=== PATIENT | female | born 1940 | race Hispanic/Latino ===

== ENCOUNTER 2017-07-13 13:50 | Emergency (ER) | payer MEDICARE ==
[2017-07-13 14:20] VITALS: TEMP 97.6; BMI 24.3
[2017-07-13 14:54] LABS: BASO # 0.06 K/mm3 (0.0-2.0); EOS % 0.5 % (1.5-5.0); GRAN # 3.44 (1.4-6.5); GRAN % 54.4 % (50.0-68.0); HEMOGLOBIN 12.7 g/dL (12.0-16.0); LYMPH # 2.3 (1.2-3.4); LYMPH % 35.7 % (22.0-35.0); MEAN CELL VOLUME 89.8 fl (80.0-105.0); MEAN CORPUSCULAR HEMOGLOBIN 29.5 pg (25.0-35.0); MEAN CORPUSCULAR HGB CONC 32.8 g/dl (31.0-37.0); MEAN PLATELET VOLUME 11.5 fl (7.0-11.0); MONO # 0.5 (0.1-0.6); MONO % 8.4 % (1.0-6.0); RBC 4.31 10^6/uL (3.5-6.1); RED CELL DISTRIBUTION WIDTH 13.4 % (11.5-14.5); WHITE BLOOD COUNT 6.3 10^3/ul (4.5-11.0)
[2017-07-13 15:06] LABS: ALB/GLOB RATIO 1.2 (1.1-1.8); ALBUMIN 3.6 g/dL (3.0-4.8); ALT/SGPT 23 U/L (7-56); AST/SGOT 22 U/L (14-36); BLOOD UREA NITROGEN 13 mg/dL (7-21); CALCIUM 9.6 mg/dL (8.4-10.5); GFR AFRICAN-AMERICAN > 60; GFR NON-AFRICAN AMERICAN > 60
--- NOTE | 2017-07-13 15:08 | CT ---
PROCEDURE: CT HEAD WITHOUT CONTRAST. HISTORY: head injury COMPARISON: None available. TECHNIQUE: Axial computed tomography images were obtained through the head/brain without intravenous contrast. Radiation dose: Total exam DLP = 917 mGy-cm. This CT exam was performed using one or more of the following dose reduction techniques: Automated exposure control, adjustment of the mA and/or kV according to patient size, and/or use of iterative reconstruction technique. FINDINGS: HEMORRHAGE: No intracranial hemorrhage. BRAIN: No mass effect or edema. Chronic microvascular changes are seen in the periventricular white matter. There are no acute findings VENTRICLES: Unremarkable. No hydrocephalus. CALVARIUM: Unremarkable. PARANASAL SINUSES: Unremarkable as visualized. No significant inflammatory changes. MASTOID AIR CELLS: Unremarkable as visualized. No inflammatory changes. OTHER FINDINGS: None. IMPRESSION: No acute intracranial findings
[2017-07-13 15:15] LABS: INR 1.07 (0.93-1.08); PARTIAL THROMBOPLASTIN TIME 30.6 Seconds (25.1-36.5); PROTHROMBIN TIME 12.2 SECONDS (9.4-12.5)
[2017-07-13 15:17] LABS: B-TYPE NATRIURETIC PEPTIDE 967 pg/mL (0-450); TROPONIN I < 0.01 ng/mL
[2017-07-13] MEDS ORDERED: Potassium Chloride 20 mEq ER Tab PO STA (15:20)
--- NOTE | 2017-07-13 15:42 | CT ---
PROCEDURE: CT MAXILLOFACIAL BONES WITHOUT CONTRAST HISTORY: nasal pain s/p trauma COMPARISON: None TECHNIQUE: Contiguous axial CT images of the maxillofacial bones were obtained. Coronal and sagittal reformats were generated. Radiation dose: Total exam DLP = 684 mGy-cm. This CT exam was performed using one or more of the following dose reduction techniques: Automated exposure control, adjustment of the mA and/or kV according to patient size, and/or use of iterative reconstruction technique. FINDINGS: NASAL BONES: Unremarkable. ORBITS: Unremarkable. PARANASAL SINUSES/ MASTOIDS: Clear. MAXILLA: Unremarkable. MANDIBLE/ TEMPOROMANDIBULAR JOINTS: Unremarkable. SKULL BASE: Unremarkable. TEMPORAL BONES: Middle ears and mastoid grossly unremarkable. OTHER FINDINGS: None. IMPRESSION: No evidence of fracture
--- NOTE | 2017-07-13 17:13 | ED PDOC ---
Arrival/HPI - General Chief Complaint: Trauma Time Seen by Provider: 07/13/17 14:32 Historian: Patient - History of Present Illness Narrative History of Present Illness (Text): 07/13/17 17:08 76yo female with PMhx of hypertension, diabetes, Dementia who present with complaint of headache and nasal pain s/p trauma yesterday. Patient states she tripped over a package yesterday fell faceward. She started having headache and pain over her nose today. The who is by the bedside states her BP has been elevated since yesterday. also report intermittent mild leg edema/ swelling x weeks. She otherwise denies dizziness, focal weakness, nausea, chest pain, SOB, diaphoresis, cough, any other complaint. Past Medical History - Provider Review Nursing Documentation Reviewed: Yes - Tetanus Immunization Tetanus Immunization: Unknown - Reproductive Menopause: No - Cardiac Hx Cardiac Disorders: Yes Hx Hypertension: Yes Hx Pacemaker: No - Neurological Hx Paralysis: No - Endocrine/Metabolic Hx Diabetes Mellitus Type 2: Yes - Hematological/Oncological Hx Blood Transfusions: No Hx Blood Transfusion Reaction: No - Musculoskeletal/Rheumatological Hx Musculoskeletal Disorders: No - Psychiatric Hx Psychophysiologic Disorder: No Hx Anxiety: No Hx Bipolar Disorder: No Hx Depression: No Hx Emotional Abuse: No Hx Hallucinations: No Hx Panic Disorder: No Hx Post Traumatic Stress Disorder: No Hx Psychosis: No Hx Physical Abuse: No Hx Schizophrenia: No Hx Sexual Abuse: No Hx Substance Use: No - Surgical History Hx Cholecystectomy: Yes Hx Hysterectomy: Yes Other/Comment: carpal tunnel, left breast cyst removal - Anesthesia Hx Anesthesia: Yes Hx Anesthesia Reactions: No Hx Malignant Hyperthermia: No - Suicidal Assessment Feels Threatened In Home Enviroment: No Family/Social History - Physician Review Nursing Documentation Reviewed: Yes Family/Social History: Unknown Family HX Smoking Status: Former Smoker Hx Alcohol Use: No Hx Substance Use: No Allergies/Home Meds Allergies/Adverse Reactions: Allergies No Known Allergies Allergy (Verified 12/01/11 11:00) Home Medications: Home Meds Medication Instructions Recorded Confirmed Aspirin 81 mg PO DAILY 12/01/11 09/27/14 Atenolol 50 mg PO DAILY 12/01/11 09/27/14 Calcium Carbonate/Vitamin D3 1 cap PO BID 12/01/11 09/27/14 [Calcium 600/Vitamin D] Lisinopril 5 mg PO DAILY 12/01/11 09/27/14 Metformin HCl [Metformin] 1,000 mg PO BID 12/01/11 09/27/14 Multivitamin [Multi Vitamins] 1 tab PO DAILY 12/01/11 09/27/14 [place] Oil/[place]-3 Fatty Acids 1,000 mg PO DAILY 12/01/11 09/27/14 [Fish Oil 500 mg Softgel] Simvastatin 20 mg PO BID 12/01/11 09/27/14 Buspirone HCl [Buspirone HCl] 5 mg PO TID 09/27/14 09/27/14 Glipizide 5 mg PO DAILY 09/27/14 09/27/14 Review of Systems - Physician Review All systems were reviewed & negative as marked: Yes - Review of Systems Constitutional: Normal Eyes: Normal ENT: Other (Nasal pain) Respiratory: Normal Cardiovascular: Normal Gastrointestinal: Normal Genitourinary Female: Normal Musculoskeletal: Normal Skin: Normal Neurological: Headache. absent: Dizziness, Focal Weakness, Gait Changes, Speech Changes, Facial Droop Endocrine: Normal Hemo/Lymphatic: Normal Psychiatric: Normal Physical Exam Vital Signs Reviewed: Yes Vital Signs Temp Pulse Resp BP Pulse Ox 07/13/17 18:29 67 16 168/80 H 96 07/13/17 17:48 75 18 176/76 H 98 07/13/17 16:00 78 18 163/84 H 98 07/13/17 14:04 97.6 F 76 18 192/84 H 98 Temperature: Afebrile Blood Pressure: Hypertensive Pulse: Regular Respiratory Rate: Normal Appearance: Positive for: Well-Appearing, Non-Toxic, Comfortable Pain Distress: None Mental Status: Positive for: Alert and Oriented X 3 - Systems Exam Head: Present: Atraumatic, Normocephalic Pupils: Present: PERRL Extroacular Muscles: Present: EOMI Conjunctiva: Present: Normal Mouth: Present: Moist Mucous Membranes Nose (External): Present: Contusion (Nasal bridge). No: Atraumatic (Effymosis and mild swelling of nasal bridge noted) Neck: Present: Normal Range of Motion Respiratory/Chest: Present: Clear to Auscultation, Good Air Exchange. No: Respiratory Distress, Accessory Muscle Use Cardiovascular: Present: Regular Rate and Rhythm, Normal S1, S2. No: Murmurs Abdomen: Present: Normal Bowel Sounds. No: Tenderness, Distention, Peritoneal Signs Back: Present: Normal Inspection Upper Extremity: Present: Normal Inspection, Edema (1+ pitting edema of b/l foot ). No: Cyanosis Lower Extremity: Present: Normal Inspection. No: Edema Neurological: Present: GCS=15, CN II-XII Intact, Speech Normal, Motor Func Grossly Intact, Normal Sensory Function, Normal Cerebellar Funct, Memory Normal , Normal 2Pt Descrimination, Other (No focal neurological deficit) Skin: Present: Warm, Dry, Normal Color. No: Rashes Psychiatric: Present: Alert, Oriented x 3, Normal Insight, Normal Concentration Medical Decision Making ED Course and Treatment: 07/13/17 18:54 Pt in ED for stated history. She had no focal neurological deficit in ED. She was AAO x3 and in no distress. Her BP improved in ED. Hypokalemia was noted and potassium was repleted. BNP of 958was noted. Both pt and the denies history of CHF. Case was DW Dr. felton who is covering Doctor Jazz and he requested that pt be DC home to f/u with Dr. Blanco this week. Pt came to ED for her facial pain/headache. She complained of LE edema, which is intermittent. she was hemodynamically stable in ED and stable to be DC home. Result and plan was DW the pt and the and they expressed understanding of the instructions. the states they will try and see Dr. blanco tomorrow. - Lab Interpretations Lab Results: 07/13/17 14:45 07/13/17 14:45 Lab Results 07/13/17 14:45: PT 12.2, INR 1.07, APTT 30.6 07/13/17 14:45: Sodium 139, Potassium 3.1 L, Chloride 98, Carbon Dioxide 36 H, Anion Gap 9 L, BUN 13, Creatinine 0.7, Est GFR ( Amer) > 60, Est GFR (Non -Af Amer) > 60, Random Glucose 141 H, Calcium 9.6, Magnesium 1.8, Total Bilirubin 0.6, AST 22, ALT 23, Alkaline Phosphatase 56, Lactate Dehydrogenase 405, Total Creatine Kinase 26 L, Troponin I < 0.01, NT-Pro-B Natriuret Pep 967 H , Total Protein 6.7, Albumin 3.6, Globulin 3.0, Albumin/Globulin Ratio 1.2 07/13/17 14:45: WBC 6.3, RBC 4.31, Hgb 12.7, Hct 38.7, MCV 89.8, MCH 29.5, MCHC 32.8, RDW 13.4, Plt Count 167, MPV 11.5 H, Gran % 54.4, Lymph % (Auto) 35.7 H, [place] % (Auto) 8.4 H, Eos % (Auto) 0.5 L, Baso % (Auto) 1.0, Gran # 3.44, Lymph # (Auto) 2.3, [place] # (Auto) 0.5, Eos # (Auto) 0.0, Baso # (Auto) 0.06 - RAD Interpretation Radiology Orders: 07/13/17 14:33 MAXILLOFACIAL W/O CONTRAST [CT] Stat 07/13/17 14:34 HEAD W/O CONTRAST [CT] Stat - Medication Orders Current Medication Orders: Discontinued Medications Furosemide (Lasix) 20 mg IVP STAT STA Stop: 07/13/17 17:37 Potassium Chloride (Potassium Chloride 20 Meq/100 Ml) 20 meq in 100 mls @ 50 mls/hr IVPB ONCE ONE Stop: 07/13/17 17:20 Last Admin: 07/13/17 16:12 Dose: 50 mls/hr eMAR Start Stop Document 07/13/17 16:12 HI (Rec: 07/13/17 16:12 HI [id number]) Intravenous Solution Start Date 07/13/17 Start Time 16:12 Potassium Chloride (K-Dur 20 Meq Er Tab) 40 meq PO STAT STA Stop: 07/13/17 15:21 Last Admin: 07/13/17 16:12 Dose: 40 meq Disposition/Present on Arrival - Present on Arrival Any Indicators Present on Arrival: No History of DVT/PE: No History of Uncontrolled Diabetes: No Urinary Catheter: No History of Decub. Ulcer: No History Surgical Site Infection Following: None - Disposition Have Diagnosis and Disposition been Completed?: Yes Diagnosis: Facial contusion, Headache, Fall, Edema, Hypokalemia Disposition: HOME/ ROUTINE Disposition Time: 17:40 Patient Plan: Discharge Patient Problems: Current Active Problems Problem Status Onset Edema Acute Facial contusion Acute Fall Acute Headache Acute Condition: STABLE Discharge Instructions (ExitCare): Headache, Adult, Contusion (DC), Preventing Falls Additional Instructions: Follow up with your Doctor this week Return to ED for any new or worsening symptoms Referrals: Hitesh Blanco MD [Primary Care Provider] - Follow up with primary Forms: [employer] (Green[place]ic)
[2017-07-13 18:30] VITALS: BP 168/80; PULSE 67; RESP 16; O2SAT 96
--- NOTE | 2017-07-14 07:25 | CARD ---
APPROVED REPORT EKG Measurement Heart [id number] <Conclusion> Sinus rhythm with 1st degree AV block with premature supraventricular complexes LAD NSSTW changes
== END 2017-07-13 18:34 | disposition home or self-care (01) ==
LOC: ED 13:50
DX: S00.83XA Contusion of other part of head, initial encounter (principal); W01.0XXA Fall on same level from slipping, tripping and stumbling without subsequent striking against object, initial encounter; Y92.9 Unspecified place or not applicable; R51 Headache; E87.6 Hypokalemia; R60.9 Edema, unspecified; I10 Essential (primary) hypertension; E11.9 Type 2 diabetes mellitus without complications; Z87.891 Personal history of nicotine dependence
CPT/HCPCS: 70450; 70486; 80053; 82550; 83615; 83735; 83880; 84484; 85025; 85610; 85730; 93005; 99285; J3480

== ENCOUNTER 2017-08-02 14:24 | Inpatient (IN) | payer MEDICARE ==
[2017-08-02 15:01] VITALS: BMI 22.3
--- NOTE | 2017-08-02 15:45 | RAD ---
HISTORY: Shortness of breath COMPARISON: 09/27/2014. FINDINGS: LUNGS: The lungs are well inflated and clear. PLEURA: No significant pleural effusion identified, no pneumothorax apparent. CARDIOVASCULAR: Normal. OSSEOUS STRUCTURES: There are lobular calcifications in the periarticular soft tissues of the shoulder joints which may represent calcific tendinitis in the appropriate clinical setting. VISUALIZED UPPER ABDOMEN: Normal. OTHER FINDINGS: None. IMPRESSION: No active pulmonary disease.
--- NOTE | 2017-08-02 16:03 | ED PDOC ---
Arrival/HPI - General Historian: Patient, Family - History of Present Illness Time/Duration: < month Symptom Course: Intermittent Activities at Onset: Rest <Duncan Woody - Last Filed: 08/02/17 17:40> - History of Present Illness Symptom Onset: Gradual Context: Home <Thom Bobby - Last Filed: 08/02/17 18:14> - General Chief Complaint: Weakness/Neurological Deficit Time Seen by Provider: 08/02/17 14:52 - History of Present Illness Narrative History of Present Illness (Text): 08/02/17 15:58 patient is a 76F with a PMH of DM, HTN comes to the ED with a CC of left eye ptosis and left arm weakness. Patient and daughter explain that the ptosis started initially 3 weeks ago but resolved. and then again 1 week ago and again resolved. The most recent episode happen over the past 24hrs. The daughter also noticed L. arm weakness that has since resolved. The patient denies any syncope, dysphagia, headache, blurry vision, double vision, changes in speech. Patients family called the PMD and they told him to come to the ED. Patient denies any recent travel or sick contacts. No fever, chest pain, sob, nausea, vomiting. (Duncan Woody) Past Medical History - Tetanus Immunization Tetanus Immunization: Unknown - Cardiac Hx Cardiac Disorders: Yes Hx Hypertension: Yes Hx Pacemaker: No - Pulmonary Hx Respiratory Disorders: No - Neurological Hx Neurological Disorder: Yes Hx Paralysis: No Other/Comment: carpal tunnel - HEENT Hx HEENT Disorder: No - Renal Hx Renal Disorder: No - Endocrine/Metabolic Hx Endocrine Disorders: Yes Hx Diabetes Mellitus Type 2: Yes - Hematological/Oncological Hx Blood Disorders: No Hx Blood Transfusions: No Hx Blood Transfusion Reaction: No - Integumentary Hx Dermatological Disorder: No - Musculoskeletal/Rheumatological Hx Musculoskeletal Disorders: Yes Hx Falls: Yes - Gastrointestinal Hx Gastrointestinal Disorders: No - Genitourinary/Gynecological Hx Genitourinary Disorders: No - Psychiatric Hx Psychophysiologic Disorder: No Hx Anxiety: No Hx Bipolar Disorder: No Hx Depression: No Hx Emotional Abuse: No Hx Hallucinations: No Hx Panic Disorder: No Hx Post Traumatic Stress Disorder: No Hx Psychosis: No Hx Physical Abuse: No Hx Schizophrenia: No Hx Sexual Abuse: No Hx Substance Use: No - Surgical History Hx Cholecystectomy: Yes Hx Hysterectomy: Yes Other/Comment: carpal tunnel, left breast cyst removal - Anesthesia Hx Anesthesia: Yes Hx Anesthesia Reactions: No Hx Malignant Hyperthermia: No - Suicidal Assessment Feels Threatened In Home Enviroment: No <Duncan Woody - Last Filed: 08/02/17 17:40> - Provider Review Nursing Documentation Reviewed: Yes - Travel History Have you recently traveled outside [place] w/in the past 3 mons?: No - Past History Past History: No Previous - Infectious Disease Hx of Infectious Diseases: None - Reproductive Menopause: Yes Currently : No <Thom Bobby - Last Filed: 08/02/17 18:14> Family/Social History - Physician Review Nursing Documentation Reviewed: Yes Family/Social History: Unknown Family HX Smoking Status: Former Smoker Hx Alcohol Use: No Hx Substance Use: No <Duncan Woody - Last Filed: 08/02/17 17:40> Hx Substance Use Treatment: No <Thom Bobby - Last Filed: 08/02/17 18:14> Allergies/Home Meds <Duncan Woody - Last Filed: 08/02/17 17:40> <Thom Bobby - Last Filed: 08/02/17 18:14> Allergies/Adverse Reactions: Allergies No Known Allergies Allergy (Verified 08/02/17 14:55) Home Medications: Home Meds Medication Instructions Recorded Confirmed Donepezil HCl [Aricept] 23 mg PO DAILY 08/02/17 08/02/17 Lisinopril [Zestril] 10 mg PO DAILY 08/02/17 08/02/17 Sertraline [Zoloft] 50 mg PO DAILY 08/02/17 08/02/17 Review of Systems - Review of Systems Constitutional: Normal Eyes: Normal ENT: Normal Respiratory: Normal Cardiovascular: Normal Gastrointestinal: Normal Genitourinary Female: Normal Musculoskeletal: Normal Skin: Normal Neurological: Normal Endocrine: Normal Hemo/Lymphatic: Normal Psychiatric: Normal <Duncan Woody - Last Filed: 08/02/17 17:40> - Review of Systems Genitourinary Female: Other (urinary incontience; urinary frequency) <KanuThom Last Filed: 08/02/17 18:14> Physical Exam Temperature: Afebrile Blood Pressure: Normal Pulse: Regular Respiratory Rate: Normal Appearance: Positive for: Well-Appearing, Non-Toxic, Comfortable Pain Distress: None Mental Status: Positive for: Alert and Oriented X 3 - Systems Exam Head: Present: Atraumatic, Normocephalic Pupils: Present: PERRL Extroacular Muscles: Present: EOMI Conjunctiva: Present: Normal Mouth: Present: Moist Mucous Membranes Neck: Present: Normal Range of Motion Respiratory/Chest: Present: Clear to Auscultation, Good Air Exchange. No: Respiratory Distress, Accessory Muscle Use Cardiovascular: Present: Regular Rate and Rhythm, Normal S1, S2. No: Murmurs Abdomen: No: Tenderness, Distention, Peritoneal Signs Back: Present: Normal Inspection Upper Extremity: Present: Normal Inspection. No: Cyanosis, Edema Lower Extremity: Present: Normal Inspection. No: Edema Neurological: Present: GCS=15, CN II-XII Intact, Speech Normal Skin: Present: Warm, Dry, Normal Color. No: Rashes Psychiatric: Present: Alert, Oriented x 3, Normal Insight, Normal Concentration <RajwinderlarsDuncan Last Filed: 08/02/17 17:40> Blood Pressure: Hypertensive (elevated DBP) <Thom Bobby Filed: 08/02/17 18:14> Vital Signs Temp Pulse Resp BP Pulse Ox 08/02/17 15:27 71 18 164/85 H 100 08/02/17 14:55 97.6 F 84 18 146/101 H 99 Medical Decision Making <RupertoscottDuncan sousa Filed: 08/02/17 17:40> Re-evaluation Time: 17:25 Reassessment Condition: Improved - Critical Care Critical Care Minutes: 30 minutes Critical Care Time: Excluding Proc Time - Lab Interpretations I have reviewed the lab results: Yes Interpretation: Abnormal lab values (+ UTI) - RAD Interpretation Project Hire: Radiologist - EKG Interpretation Interpreted by ED Physician: Yes Type: 12 lead EKG Comparison: Similar to previous EKG <Thom Bobby Last Filed: 08/02/17 18:14> ED Course and Treatment: 08/02/17 16:03 76F with intermittent Ptosisof the left eye and L. arm weakness - head ct - cxr, ekg - cbc, cmp, mag, UA 08/02/17 17:19 - pending head CT official read - cxr no effusion or inflitrate, no widening of the mediastinum. No evidence of congestion - EKG showed no ST changes, no arrythmogenic changes - labs unremarkable 08/02/17 17:41 UA shows UTI. 1g rochepin (Duncan Woody) Patient seen with the resident. I performed a physical exam of the patient and discussed their management with resident. I have reviewed the resident note and agree with the assessment and plan of care. Vital signs reviewed: elevated BP, otherwise Within normal limits alert/awake, GCS = 15, oriented x 3, resting in bed, uncomfortable, cooperative , interactive NC/AT; mild bi-temporal wasting PERRLA, EOMI, sclera anicteric, no nystagmus, no photophobia; visual field intact b/l; noted mild left upper eye lid droop NECK: intact ROM, no midline tenderness, no nuchal rigidity, no meningeal signs ; no step off CTA b/l, no w/r/r +S1, +S2, no m/r/r +BS, soft/nd/nt, well nourished patient ext: intact ROM, strength 5/5 grossly intact in right upper/lower limbs, 5-/5 strength to left upper/lower limbs, neurovasc intact b/l SKIN: cap refill ~ 1 sec, no ulcerations, no petechiae, no rashes NEURO: CNII-XII WNL, no facial asymmetries, no slurr speech NIH stroke scale ~ 1-2 Impression: Left periorbital weakness with left arm,leg weakness r/o CVA I have considered all the differential diagnosis regarding the patient's chief medical complaints/clinical findings, including but are not limited to: Left periorbital weakness with left arm,leg weakness A/P: Left periorbital weakness with left arm, leg weakness -- Head CT w/o contrast -- Urinalysis -- Labs -- Supportive Care -- Observe 08/02/17 17:[address] Loredo, who is made aware of pt's medical presentation in the ED and agrees with emergency department recommendation for admission, and request Dr. Wood for Neurology consult. 08/02/17 18:03 pt is doing well currently pt is not in any distress pt expressed she is hungry and would like a meal pt/spouse are made aware of pt's medical results agrees with admission NIH stroke scale ~ 1 (Thom Bobby) - Critical Care Narrative Critical Care (Text): 08/02/17 18:10 critical care time: 30min, excluding procedure time, excluding time teaching residents/students/mid-level providers; including initial eval/diagnosis, diagnostic interpretation, re-eval, consultations, final disposition (Thom Bobby) - Lab Interpretations Lab Results: 08/02/17 16:10 08/02/17 16:10 Lab Results 08/02/17 16:51: Urine Color Yellow, Urine Appearance Cloudy, Urine pH 6.5, Ur Specific [place] 1.020, Urine Protein Trace H, Urine Glucose (UA) Negative, Urine Ketones Negative, Urine Blood Trace-intact H, Urine Nitrate Positive H, Urine Bilirubin Negative, Urine Urobilinogen 0.2, Ur Leukocyte Esterase Large H , Urine RBC 0 - 2, Urine WBC Tntc, Ur Epithelial Cells 0 - 2, Urine Bacteria Many 08/02/17 16:10: Sodium 139, Potassium 4.2, Chloride 103, Carbon Dioxide 29, Anion Gap 11, BUN 15, Creatinine 0.8, Est GFR ( Amer) > 60, Est GFR (Non- Af Amer) > 60, Random Glucose 103, Calcium 9.5, Magnesium 2.1, Total Bilirubin 0.5, AST 21, ALT 26, Alkaline Phosphatase 69, Total Protein 6.7, Albumin 3.7, Globulin 3.0, Albumin/Globulin Ratio 1.2 08/02/17 16:10: PT 12.5, INR 1.09 H, APTT 28.5 08/02/17 16:10: WBC 5.6, RBC 4.22, Hgb 12.4, Hct 37.3, MCV 88.4, MCH 29.4, MCHC 33.2, RDW 13.7, Plt Count 182, MPV 11.1 H, Gran % 49.6 L, Lymph % (Auto) 40.0 H , [place] % (Auto) 8.6 H, Eos % (Auto) 0.7 L, Baso % (Auto) 1.1, Gran # 2.77, Lymph # (Auto) 2.2, [place] # (Auto) 0.5, Eos # (Auto) 0.0, Baso # (Auto) 0.06 - RAD Interpretation Narrative RAD Interpretations (Text): 08/02/17 17:55 HISTORY: Shortness of breath COMPARISON: 09/27/2014. FINDINGS: LUNGS: The lungs are well inflated and clear. PLEURA: No significant pleural effusion identified, no pneumothorax apparent. CARDIOVASCULAR: Normal. OSSEOUS STRUCTURES: There are lobular calcifications in the periarticular soft tissues of the shoulder joints which may represent calcific tendinitis in the appropriate clinical setting. VISUALIZED UPPER ABDOMEN: Normal. OTHER FINDINGS: None. IMPRESSION: No active pulmonary disease. PROCEDURE: CT HEAD WITHOUT CONTRAST. HISTORY: Left eye ptosis, L. arm weakness COMPARISON: 07/13/2017 CT head 09/03/2016 MRI brain TECHNIQUE: Axial computed tomography images were obtained through the head/brain without intravenous contrast. Radiation dose: Total exam DLP = 772.06 mGy-cm. This CT exam was performed using one or more of the following dose reduction techniques: Automated exposure control, adjustment of the mA and/or kV according to patient size, and/or use of iterative reconstruction technique. FINDINGS: HEMORRHAGE: No intracranial hemorrhage. BRAIN: Stable extra-axial mass left frontal parietal region. Finding initially seen on MRI 09/03/2016 and confirmed on recent CT head. This extra-axial mass measures 0.6 x 1.9 cm and likely represents meningioma. Stable cortical atrophy and periventricular small vessel disease. VENTRICLES: Unremarkable. No hydrocephalus. CALVARIUM: Unremarkable. PARANASAL SINUSES: Unremarkable as visualized. No significant inflammatory changes. MASTOID AIR CELLS: Unremarkable as visualized. No inflammatory changes. OTHER FINDINGS: None. IMPRESSION: No acute intracranial abnormality. No significant interval change compared to the prior examination(s). (Thom Bobby) Radiology Orders: 08/02/17 15:15 HEAD W/O CONTRAST [CT] Stat CHEST PORTABLE [RAD] Stat - EKG Interpretation EKG Interpretation (Text): 08/02/17 18:07 sinus rhythm at 65 bpm, LAD, + PACs, borderline 1st degree av block, qs in leads III/F, no st changes, ABNL EKG; unchanged compare with old ekg 07/2017 ( Thom Bobby) - Medication Orders Current Medication Orders: Discontinued Medications Aspirin (Aspirin) 325 mg PO STAT STA Stop: 08/02/17 17:22 Ceftriaxone Sodium (Rocephin 1 Gram Ivpb) 1 gm in 100 mls @ 200 mls/hr IVPB STAT STA PRN Reason: Protocol Stop: 08/02/17 17:49 <Duncan Woody - Last Filed: 08/02/17 17:40> - Scribe Statement The provider has reviewed the documentation as recorded by the Scribe <Thom Bobby - Last Filed: 08/02/17 18:14> - Scribe Statement Trini Mcconnell Provider Scribe Attestation: All medical record entries made by the Scribe were at my direction and personally dictated by me. I have reviewed the chart and agree that the record accurately reflects my personal performance of the history, physical exam, medical decision making, and the department course for this patient. I have also personally directed, reviewed, and agree with the discharge instructions and disposition. (KanuThom) Disposition/Present on Arrival - Present on Arrival Any Indicators Present on Arrival: No History of DVT/PE: No History of Uncontrolled Diabetes: No Urinary Catheter: No History of Decub. Ulcer: No History Surgical Site Infection Following: None <Duncan Woody - Last Filed: 08/02/17 17:40> - Disposition Have Diagnosis and Disposition been Completed?: Yes Disposition Time: 18:00 Patient Plan: Admission, Telemetry <Thom Bobby - Last Filed: 08/02/17 18:14> - Disposition Diagnosis: Ptosis, left eyelid, Limb weakness, Elevated blood pressure reading, UTI ( urinary tract infection) Disposition: HOSPITALIZED Condition: STABLE Discharge Instructions (ExitCare): Hypotension (ED), Hypertension (ED) Forms: [facility] (Moroccan)
[2017-08-02 16:17] LABS: BASO # 0.06 K/mm3 (0.0-2.0); BASO % 1.1 % (0.0-3.0); EOS % 0.7 % (1.5-5.0); GRAN # 2.77 (1.4-6.5); GRAN % 49.6 % (50.0-68.0); HEMOGLOBIN 12.4 g/dL (12.0-16.0); LYMPH # 2.2 (1.2-3.4); MEAN CELL VOLUME 88.4 fl (80.0-105.0); MEAN CORPUSCULAR HEMOGLOBIN 29.4 pg (25.0-35.0); MEAN CORPUSCULAR HGB CONC 33.2 g/dl (31.0-37.0); MEAN PLATELET VOLUME 11.1 fl (7.0-11.0); MONO # 0.5 (0.1-0.6); MONO % 8.6 % (1.0-6.0); RBC 4.22 10^6/uL (3.5-6.1); RED CELL DISTRIBUTION WIDTH 13.7 % (11.5-14.5); WHITE BLOOD COUNT 5.6 10^3/ul (4.5-11.0)
[2017-08-02 16:27] LABS: INR 1.09 (0.93-1.08); PARTIAL THROMBOPLASTIN TIME 28.5 Seconds (25.1-36.5); PROTHROMBIN TIME 12.5 SECONDS (9.4-12.5)
[2017-08-02 16:43] LABS: ALB/GLOB RATIO 1.2 (1.1-1.8); ALBUMIN 3.7 g/dL (3.0-4.8); ALT/SGPT 26 U/L (7-56); AST/SGOT 21 U/L (14-36); BLOOD UREA NITROGEN 15 mg/dL (7-21); CALCIUM 9.5 mg/dL (8.4-10.5); GFR AFRICAN-AMERICAN > 60; GFR NON-AFRICAN AMERICAN > 60
[2017-08-02 16:56] LABS: PH,URINE 6.5 (4.7-8.0); URINE BILIRUBIN NEGATIVE (NEGATIVE); URINE BLOOD TRACE-INTACT (NEGATIVE); URINE GLUCOSE (UA) NEGATIVE (NEGATIVE); URINE LEUKOCYTE ESTERASE LARGE Leu/uL (NEGATIVE); URINE PROTEIN TRACE mg/dL (<30 mg/dL); URINE UROBILINOGEN 0.2 E.U./dL (<1 E.U./dL)
[2017-08-02 16:58] LABS: URINE APPEARANCE CLOUDY (CLEAR); URINE COLOR YELLOW (YELLOW)
[2017-08-02 17:01] LABS: URINE BACTERIA MANY (NEG); URINE EPITHELIAL CELLS 0 - 2 /hpf (0-5); URINE RBC 0 - 2 /hpf (0-2); URINE WBC TNTC /hpf (0-6)
[2017-08-02] MEDS ORDERED: cefTRIAXone 1 gm 1 GM/100 ML BAG IVPB STA (17:20)
--- NOTE | 2017-08-02 17:40 | CT ---
PROCEDURE: CT HEAD WITHOUT CONTRAST. HISTORY: Left eye ptosis, L. arm weakness COMPARISON: 07/13/2017 CT head 09/03/2016 MRI brain TECHNIQUE: Axial computed tomography images were obtained through the head/brain without intravenous contrast. Radiation dose: Total exam DLP = 772.06 mGy-cm. This CT exam was performed using one or more of the following dose reduction techniques: Automated exposure control, adjustment of the mA and/or kV according to patient size, and/or use of iterative reconstruction technique. FINDINGS: HEMORRHAGE: No intracranial hemorrhage. BRAIN: Stable extra-axial mass left frontal parietal region. Finding initially seen on MRI 09/03/2016 and confirmed on recent CT head. This extra-axial mass measures 0.6 x 1.9 cm and likely represents meningioma. Stable cortical atrophy and periventricular small vessel disease. VENTRICLES: Unremarkable. No hydrocephalus. CALVARIUM: Unremarkable. PARANASAL SINUSES: Unremarkable as visualized. No significant inflammatory changes. MASTOID AIR CELLS: Unremarkable as visualized. No inflammatory changes. OTHER FINDINGS: None. IMPRESSION: No acute intracranial abnormality. No significant interval change compared to the prior examination(s).
--- NOTE | 2017-08-02 19:19 | CARD ---
APPROVED REPORT EKG Measurement Heart [id number] <Conclusion> Sinus rhythm with premature atrial complexes Anterior infarct, age undetermined Abnormal ECG
[2017-08-03] MEDS: cefTRIAXone 1 gm 1 GM/100 ML BAG IVPB SCH (10:52)
[2017-08-03] MEDS: DONEPEZIL HCL 23 MG PO SCH (10:54)
[2017-08-03 13:09] LABS: HDL CHOLESTEROL 54 mg/dL (29-60)
[2017-08-03 13:20] LABS: LDL CHOLESTEROL 177 mg/dL (0-129)
[2017-08-03] MEDS ORDERED: Gadodiamide 287 MG/ML VIAL (15ML) IV ONE (16:06)
--- NOTE | 2017-08-03 17:25 | MRI ---
PROCEDURE: MRI BRAIN WITHOUT CONTRAST HISTORY: left eye ptosis and left arm weakness. COMPARISON: 09/03/2016 MRI TECHNIQUE: Multiplanar, multisequence MR images of the brain were obtained without intravenous contrast enhancement. The study was limited. The patient refused any further scanning. There was some motion artifact FINDINGS: HEMORRHAGE: None DWI: No evidence of an acute or early subacute infarction. BRAIN PARENCHYMA: No mass effect or edema. Chronic microvascular changes are seen in the periventricular white matter, basal ganglia and [place]. VENTRICLES: Unremarkable. No hydrocephalus. CRANIUM: Unremarkable. ORBITS: Grossly unremarkable. PARANASAL SINUSES/MASTOIDS: Clear VASCULAR SYSTEM: Skull base flow voids intact. OTHER FINDINGS: None. IMPRESSION: Chronic microvascular changes are seen in the periventricular white matter, basal ganglia and valentine.
--- NOTE | 2017-08-03 17:38 | US ---
PROCEDURE: Bilateral carotid artery duplex ultrasound HISTORY: Carotid stenosis TIA PHYSICIAN(S): Aldo Tijerina MD. TECHNIQUE: Duplex sonography and color-flow Doppler were used to evaluate the carotid bifurcations and limited segments of the vertebral arteries bilaterally. FINDINGS: There is mild smooth heterogeneous plaque noted at the carotid bifurcations bilaterally. The peak systolic velocity in the proximal right internal carotid artery is 103 cm/sec. This corresponds to a 20 to 39% proximal right ICA stenosis. Normal systolic velocities are noted in the proximal right external carotid artery. There is antegrade flow in the dominant right vertebral artery. The peak systolic velocity in the proximal left internal carotid artery is 89 cm/sec. This corresponds to a 20 to 39% proximal left ICA stenosis. Normal systolic velocities are noted in the proximal left external carotid artery. There is antegrade flow in the left vertebral artery. IMPRESSION: 1. Bilateral 20-39% proximal ICA stenoses. 2. Antegrade flow in both vertebral arteries.
--- NOTE | 2017-08-03 19:47 | CON ---
DATE: 08/03/2017 NEUROLOGY CONSULTATION CHIEF COMPLAINT: Transient left arm weakness and some questionable ptosis on the left eye. HISTORY OF PRESENT ILLNESS: This is a 76-year-old woman with history of type 2 diabetes mellitus, hypertension, was not taking aspirin at home. Complained of left eyelid weakness which she also had 3 weeks prior to her visit and presented with it as well along with some transient left arm weakness, which all symptoms resolved. She had elevated systolic and diastolic blood pressures in the ER of 146/101. She underwent a carotid Doppler, which showed 20-39% proximal ICA stenosis with antegrade flow of vertebral artery. MRI of the brain showed chronic ischemic changes and a small very tiny lacunar infarct in the right MCA territory, which does correspond with her transient left-sided weakness. She also has urinary tract infection, which she is on antibiotics, which was seen on her UA. No focal weakness at this time. REVIEW OF SYSTEMS: Fourteen-point review of systems negative except per the HPI. PAST MEDICAL HISTORY: Diabetes, hypertension and dyslipidemia. ALLERGIES: NO KNOWN DRUG ALLERGIES. MEDICATIONS: Reviewed by nurse reconciliation sheet. FAMILY HISTORY: Noncontributory. LABORATORY DATA: Total cholesterol is 271, LDL is 177, HDL is 54, triglycerides 101. Normal CMP otherwise. PHYSICAL EXAMINATION: VITAL SIGNS: Temperature 97, pulse rate of 70, blood pressure 117/79, respiratory rate of 16, oxygen saturation 99% by room air. GENERAL: The patient is sitting up in bed, in no acute distress. HEENT: Atraumatic, normocephalic. PERRLA. Extraocular muscles intact. NECK: Supple. No JVD. No adenopathy noted. LUNGS: Clear to auscultation. No adventitious sounds. HEART: S1, S2. Normal rate and rhythm. No murmurs, rubs or gallops. ABDOMEN: Soft, nontender and nondistended. Bowel sounds are present. EXTREMITIES: No clubbing. No cyanosis. Peripheral pulses 2+ felt bilaterally. NEUROLOGIC: The patient is alert and oriented to person, place, month and year. Speech is fluent without any errors. Cranial nerves II through XII intact. Motor exam: Moves all extremities equally. No pronator drift seen, but does have reduced finger tap and mild leg weakness of 5-/5 when compared to the right. Left toes upgoing, right toes downgoing. Sensory exam: Light touch, pinprick are decreased up to the calves bilaterally. Decreased vibration of the toes. DTRs are 2+ throughout, 1 at the knees and ankles. Coordination: [id number] intact. No dysmetria noted. Gait is deferred for now. ASSESSMENT AND PLAN: This is a 76-year-old woman with history of hypertension, type 2 diabetes mellitus, dyslipidemia, was not on any aspirin, history of some cognitive impairment, on Aricept by her neurologist, , who presented with transient left arm weakness and left eye ptosis, but no double vision or blurry vision. No headaches. Her symptoms have resolved, but she does have some subtle left-sided weakness based on neurologic exam. Her carotid Doppler showed 20-39% proximal internal carotid artery stenosis with antegrade flow of vertebral artery. She did have a small tiny acute infarct in the right middle cerebral artery territory, which corresponds to initial presenting complaints and she had elevated systolic and diastolic blood pressures when she presented to the ER. Overall, her left arm weakness transiently was secondary to the transient ischemic attack superimposed underlying right small tiny lacunar infarction in the right middle cerebral artery territory secondary to diffuse atherosclerotic disease and uncontrolled blood pressures. At this time, recommend, 1. Aspirin 81, Lipitor 40 for stroke prevention. 2. Heart-healthy diet and low fat diet. 3. PT/OT evaluation. 4. Echocardiogram and follow up with her neurologist as an outpatient. Thank you for this consult. Cesar Wood MD
--- NOTE | 2017-08-04 02:27 | HP ---
HISTORY OF PRESENT ILLNESS: This is a 76-year-old female, who had come into the hospital. She was found to have a left eye ptosis. The patient was brought in by her daughter. The patient's daughter also states that she has been having weight loss. She denies any weakness in the arms or the legs. She has no headaches or dizziness. No fevers, no chills. The patient has no abdominal pain, no back pain. No dysuria, frequency or hematuria. She states that the ptosis started about 3 weeks ago and then has now came back again. The patient denies any seizure activity. She denies any fall. She denies any headaches. REVIEW OF SYSTEMS: All other review of symptoms are within normal limits except what was mentioned. ALLERGIES: NO KNOWN DRUG ALLERGIES. HOME MEDICATIONS: She is on Aricept, Zestril, Zoloft. SOCIAL HISTORY: She is a former smoker, does not smoke or drink. FAMILY HISTORY: Noncontributory. PAST MEDICAL HISTORY: Carpal tunnel syndrome, diabetes type 2, hypertension. PHYSICAL EXAMINATION: VITAL SIGNS: Temperature is 97, pulse is 70, blood pressure 170/79, respirations 16, O2 saturation 99%. GENERAL: The patient lying in bed, uncomfortable, and in no acute distress. HEENT: Atraumatic and normocephalic. Anicteric sclerae. Moist mucosa. [place] conjunctivae. No oral lesions. Left eye ptosis. NECK: No JVD, anterior and posterior adenopathy, thyromegaly, or bruits. CARDIOVASCULAR: S1 and S2 regular. No murmur, rubs, or gallop. LUNGS: Clear to auscultation bilaterally. No wheezes, rales, or rhonchi. ABDOMEN: Bowel sounds are positive. Soft, nontender and nondistended. No hepatosplenomegaly. No rebound and no guarding EXTREMITIES: No cyanosis, clubbing, or edema. NEUROLOGIC: No facial asymmetry. Tongue is midline. No uvula deviation. Power is 5/5 upper extremity and lower extremity. Sensation intact in upper extremity and lower extremity. PSYCHIATRIC: She is awake, alert and oriented x3. No anxiety or depression. She has normal affect. GENITOURINARY: No CVA tenderness. VASCULAR: 2+ pulses in the carotid pulses and pedal pulses. SKIN: No erythema or nodules SPINE: Shows normal curvature. LABORATORY DATA: Have been reviewed. White count of 5.6. Chemistry showed the creatinine is 0.8. The patient has an LDL of 177. Nitrites is positive, bilirubin is negative. Chest x-ray done, shows no active pulmonary disease. EKG shows sinus rhythm with PACs with a QTc of 462. ASSESSMENT: 1. Left eye ptosis. 2. Dyslipidemia. 3. Urinary tract infection. 4. Hypertension, uncontrolled. 5. Anxiety. PLAN: The patient is going to have carotid arterial Dopplers done. She is on a heart-healthy diet. I did speak to the patient's daughter. She is also losing weight. So I will get Dr. Martinez to evaluate the patient. on this specialist. I also spoke to the patient's to give him an update on the patient's diagnoses and plan of care. Dario Jordan MD
--- NOTE | 2017-08-04 06:23 | CON ---
DATE: 08/03/2017 This patient was seen and evaluated earlier today. REASON FOR CONSULTATION: Weight loss. HISTORY OF PRESENT ILLNESS: This 76-year-old patient with history of type 2 diabetes mellitus, hypertension, admitted with left eye weakness and let arm weakness. Patient gives a history of losing about 35 to 40 pounds in weight in the last 3 to 4 months. GI consult was requested to further evaluate. Patient states that she has been not eating. She has a very poor p.o. intake for the last 3 months. No complaints of any abdominal pain. No bleeding per rectum. OTHER PAST MEDICAL HISTORY: Significant as above. SOCIAL HISTORY: Denies smoking, alcohol. REVIEW OF SYSTEMS: Positive as above. Other systems reviewed, negative. PHYSICAL EXAMINATION: GENERAL: Patient is lying on the bed, not in acute distress. VITAL SIGNS: Blood pressure is 164/85, pulse 71, respirations 18. HEENT: Atraumatic, anicteric. NECK: Supple. HEART: S1, S2 heard. LUNGS: Bilateral air entry present. ABDOMEN: Soft. There is no tenderness. EXTREMITIES: No edema. No cyanosis. LABORATORY DATA: Hemoglobin 12.4, hematocrit 37.3, WBC 5.6, platelets 182. Chemistry: LFT is normal. IMPRESSION: This is a 76-year-old patient admitted with: 1. Transient left arm weakness and ptosis. 2. History of weight loss. 3. Anorexia, loss of appetite. Patient lost about 40 pounds in weight in 3 to 4 months' time. Patient has loss of appetite and significant weight loss. 4. Other comorbidities include diabetes mellitus, hypertension, dyslipidemia. The etiology for weight loss is unclear. RECOMMENDATIONS: Would request, 1. CT scan of the abdomen and pelvis with p.o. and IV contrast to further evaluate. 2. Patient may benefit from an endoscopy for further optimization in view of the recent history of possible TIA/stroke. Thank you very much for allowing me to participate in the care of the patient. Kvng Martinez MD
[2017-08-04 07:00] LABS: HEMOGLOBIN 13.2 g/dL (12.0-16.0); MEAN CELL VOLUME 88.3 fl (80.0-105.0); MEAN CORPUSCULAR HEMOGLOBIN 28.7 pg (25.0-35.0); MEAN CORPUSCULAR HGB CONC 32.5 g/dl (31.0-37.0); MEAN PLATELET VOLUME 11.9 fl (7.0-11.0); RBC 4.6 10^6/uL (3.5-6.1); RED CELL DISTRIBUTION WIDTH 13.8 % (11.5-14.5); WHITE BLOOD COUNT 6.4 10^3/ul (4.5-11.0)
[2017-08-04 07:02] LABS: ALB/GLOB RATIO 1.2 (1.1-1.8); ALBUMIN 3.8 g/dL (3.0-4.8); ALT/SGPT 25 U/L (7-56); AST/SGOT 22 U/L (14-36); BLOOD UREA NITROGEN 10 mg/dL (7-21); CALCIUM 9.7 mg/dL (8.4-10.5); GFR AFRICAN-AMERICAN > 60; GFR NON-AFRICAN AMERICAN > 60
[2017-08-04] MEDS: DONEPEZIL HCL 23 MG PO SCH (09:33)
[2017-08-04] MEDS: cefTRIAXone 1 gm 1 GM/100 ML BAG IVPB SCH (09:34)
[2017-08-04] MEDS ORDERED: Barium Sulfate Susp 2.1% w/v, 2.0% w/w 450 mL Bottle PO ONE (11:01)
--- NOTE | 2017-08-04 11:50 | CP.PCM.PN ---
<Lesvia Cody - Last Filed: 08/04/17 11:47> Subjective - Date & Time of Evaluation Date of Evaluation: 08/04/17 Time of Evaluation: 10:20 - Subjective Subjective: Seen and examined at the bedside earlier today, chart review. Patient denies nausea, vomiting, or abdominal pain. Report having bowel movement yesterday no reports of overnight events. Denies dysphagia, tolerated a bite of bagel although reported that it was hard. Objective - Vital Signs/Intake and Output Vital Signs (last 24 hours): Temp Pulse Resp BP Pulse Ox 97.8 F 70 19 154/76 H 94 L 08/04/17 07:56 08/04/17 07:56 08/04/17 07:56 08/04/17 09:34 08/04/17 07:56 Intake and Output: 08/04/17 08/04/17 06:59 18:59 Intake Total 420 Balance 420 - Medications Medications: Current Medications Amlodipine Besylate (Norvasc) 10 mg PO DAILY [facility] Last Admin: 08/04/17 09:34 Dose: 10 mg Aspirin (Ecotrin) 81 mg PO DAILY [facility] Last Admin: 08/04/17 09:34 Dose: 81 mg Atorvastatin Calcium (Lipitor) 20 mg PO DIN [facility] Last Admin: 08/03/17 17:18 Dose: 20 mg Cefpodoxime Proxetil (Vantin) 200 mg PO Q12 [facility] Lisinopril (Zestril) 40 mg PO DAILY [facility] Last Admin: 08/04/17 09:35 Dose: 40 mg Donepezil Hcl [ Aricept] 23 Mg (Home Med) 23 mg PO DAILY [facility] Last Admin: 08/04/17 09:33 Dose: Not Given Sertraline HCl (Zoloft) 50 mg PO DAILY [facility] Last Admin: 08/04/17 09:35 Dose: 50 mg - Labs Labs: 08/04/17 06:00 08/04/17 06:00 PT 12.5 SECONDS (9.4-12.5) 08/02/17 16:10 INR 1.09 (0.93-1.08) H 08/02/17 16:10 APTT 28.5 Seconds (25.1-36.5) 08/02/17 16:10 - Constitutional Appears: No Acute Distress - Head Exam Head Exam: NORMOCEPHALIC - Eye Exam Eye Exam: Normal appearance. absent: Scleral icterus - ENT Exam ENT Exam: Mucous Membranes Moist - Neck Exam Neck Exam: Normal Inspection - Respiratory Exam Respiratory Exam: NORMAL BREATHING PATTERN. absent: Respiratory Distress - Cardiovascular Exam Cardiovascular Exam: +S1, +S2 - GI/Abdominal Exam GI & Abdominal Exam: Soft, Normal Bowel Sounds. absent: Guarding, Tenderness, Organomegaly, Rebound - Extremities Exam Extremities Exam: Normal Capillary Refill. absent: Calf Tenderness, Pedal Edema - Neurological Exam Neurological Exam: Alert, Awake, Oriented x3 Neuro motor strength exam: Left Upper Extremity: 3 (noted some mild weakness), Right Upper Extremity: 4, Left Lower Extremity: 4, Right Lower Extremity: 4 - Skin Skin Exam: Dry, Warm Assessment and Plan - Assessment and Plan (Free Text) Assessment: Assessment: Transient left arm weakness, proptosis Weight loss of about 30-40 pounds Anorexia Hypertension Diabetes mellitus Plan: Request for CT scan of chest/abdomen and pelvis with IV and oral contrast change diet to soft hard healthy moderate carb diet, discussed with patient to eat slowly and chew food well May benefit from endoscopy for further evaluation of weight loss when patient is more optimize secondary to recent TIA/stroke As per neurology Seen and examined with Dr. Martinez. <Kvng Martinez V - Last Filed: 08/05/17 00:11> Objective - Vital Signs/Intake and Output Vital Signs (last 24 hours): Temp Pulse Resp BP Pulse Ox 97.4 F L 78 18 131/70 98 08/04/17 16:00 08/04/17 22:00 08/04/17 16:00 08/04/17 16:00 08/04/17 16:00 Intake and Output: 08/04/17 08/05/17 18:59 06:59 Intake Total 300 Output Total 100 Balance 200 - Medications Medications: Current Medications Amlodipine Besylate (Norvasc) 10 mg PO DAILY [facility] Last Admin: 08/04/17 09:34 Dose: 10 mg Aspirin (Ecotrin) 81 mg PO DAILY [facility] Last Admin: 08/04/17 09:34 Dose: 81 mg Atorvastatin Calcium (Lipitor) 20 mg PO DIN [facility] Last Admin: 08/04/17 16:59 Dose: 20 mg Cefpodoxime Proxetil (Vantin) 200 mg PO Q12 [facility] Lisinopril (Zestril) 40 mg PO DAILY [facility] Last Admin: 08/04/17 09:35 Dose: 40 mg Donepezil Hcl [ Aricept] 23 Mg (Home Med) 23 mg PO DAILY [facility] Last Admin: 08/04/17 09:33 Dose: Not Given Sertraline HCl (Zoloft) 50 mg PO DAILY [facility] Last Admin: 08/04/17 09:35 Dose: 50 mg - Labs Labs: 08/04/17 06:00 08/04/17 06:00 PT 12.5 SECONDS (9.4-12.5) 08/02/17 16:10 INR 1.09 (0.93-1.08) H 08/02/17 16:10 APTT 28.5 Seconds (25.1-36.5) 08/02/17 16:10 Attending/Attestation - Attestation I have personally seen and examined this patient.: Yes I have fully participated in the care of the patient.: Yes I have reviewed all pertinent clinical information, including history, physical exam and plan: Yes Notes (Text): This is an addendum to GI progress report dictated by Lesvia Cody APN.The patient was seen and examined earlier. Medical records, lab studies, imagings were reviewed. Last 24 hours events reviewed. Agreed with the above treatment plan as outlined in Lesvia Cody APN's notes the with the addition of the following patient comfortably Still complains of loss Abdomen soft no tendern CT scan reviewed, no mass lesion was no acute finding In view of recent TIA would avoid endoscopy procedures recommend continue the asp Continue PPI Elective EGD in 2 weeks' time after neurology clearance 08/05/17 00:07
--- NOTE | 2017-08-04 13:14 | PQF CVATIA ---
Dr. Wood, This form is a permanent part of the medical record Please clarify your statement documented in your consult..."she did have a small tiny acute infarct in right MCA territory which corresponds to presenting complaints....left arm weakness secondary to transient ischemic attack superimposed underlying right small tiny lacunar infarction......". Did patient have TIA or CVA on admission causing symptoms? Clarification of your documentation is requested to better reflect the severity of illness and intensity of treatment of your patient. Indicators present: [] Altered mental status [] Aphasia [] Dysphagia [] Dysphasia [x] Facial droop/numbness [] Gait disturbance [] Hemiparesis/plegia [] Speech impairment [x] Weakness left arm [] Neuro Consult [] CT/MRI Findings [] Other: [] Location in the medical record that reflects the above clinical findings: [] Treatment Provided: [] PHYSICIAN'S RESPONSE Based on your medical judgment of the clinical indicators outlined above, are you treating this patient for a known or suspected: [] Acute Cerebrovascular Accident (CVA) Please specify type i.e.; embolic, hemorrhagic, ischemic. Please specify the artery involved if known. [] Transient Ischemic Accident (TIA) [] Prolonged reversible ischemic neurological disorder [] Other, please indicate: [] [] If unable to determine, please check the box, sign and date. Present On Admission (POA) Indicator: [] Present at the time of admission [] Not present at the time of admission [] Clinically Undetermined In responding to this query, please exercise your independent professional judgment. The fact that a question is asked does not imply that any particular answer is desired or expected. Thank you for your clarification on this documentation. 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
[2017-08-04] MEDS ORDERED: Iohexol 350 MG/100 ML VIAL ONE (13:32)
--- NOTE | 2017-08-04 15:43 | CT ---
PROCEDURE: CT Chest, Abdomen and Pelvis with intravenous contrast HISTORY: wt. loss COMPARISON: None. TECHNIQUE: Following oral and intravenous contrast administration, a CT examination of the abdomen and pelvis performed from the domes of the diaphragms to the symphysis pubis with reformatted datasets provided not only axial but also sagittal and coronal series. IV dose administered: Omnipaque 350, 100 cc Radiation dose: Total exam DLP = 514.63 mGy-cm. This CT exam was performed using one or more of the following dose reduction techniques: Automated exposure control, adjustment of the mA and/or kV according to patient size, and/or use of iterative reconstruction technique. FINDINGS: CT CHEST WITH CONTRAST: LUNGS: No infiltrate bilaterally. Trace occasional atelectasis seen at the dependent lower lobes bilaterally. With no definite acute infiltrate No nodule, mass or consolidation. MEDIASTINUM: A small hiatal hernia is identified inferiorly with the thoracic inlet grossly remarkable only for inhomogeneous enhancement at the left thyroid lobe with a small right thyroid lobe identified. Normal caliber aorta and pulmonary arterial trunk. Moderately extensive coronary artery atherosclerotic plaques identified. No aortic dissection. Normal size heart. LYMPH NODES: Unremarkable. PLEURA: Unremarkable. No pneumothorax. No pleural fluid. BONES: Unremarkable. OTHER FINDINGS: None. CT ABDOMEN AND PELVIS: LIVER: Trace pneumobilia is seen in nondependent central intrahepatic ducts in this patient with prior cholecystectomy. No gross lesion or prominent ductal dilatation. GALLBLADDER AND BILE DUCTS: Prior cholecystectomy evident. PANCREAS: Unremarkable. No gross lesion or ductal dilatation. SPLEEN: Unremarkable. ADRENALS: Unremarkable. No mass. KIDNEYS AND URETERS: 4.6 cm simple cyst seen exophytic at the upper pole left kidney with 2 small midpole cyst identified as well. No cyst or solid mass is seen at the right kidney and there is no solid mass at the left kidney either. Small cortical defects are seen bilaterally suggestive of probable chronic infarcts. VASCULATURE: Unremarkable. No aortic aneurysm. BOWEL: The stomach is distended with moderate amount of retained food. There is no bowel obstruction or mesenteric edema. Moderate fecal loading seen throughout the colon with scattered colonic diverticular appreciate which are nonacute. APPENDIX: Normal but retrocecal appendix is identified. PERITONEUM: Unremarkable. No free fluid. No free air. LYMPH NODES: Unremarkable. No enlarged lymph nodes. BLADDER: Trace gas seen in nondependent urinary bladder with the inferior portion of bladder obscured by left total hip replacement hardware. Consider recent instrumentation. Clinically correlate further. REPRODUCTIVE: Prior hysterectomy suggested. BONES: A [id number] anterior wedge compression fractures identified T12 indeterminate in age. No spondylolisthesis. OTHER FINDINGS: None. IMPRESSION: No definite pattern to suggest thoracic or abdominal/pelvic focal neoplasm. No significant lymphadenopathy throughout the examination. Limited bilateral basilar dependent atelectasis without acute infiltrate evident. No pneumothorax or pleural effusion identified. Prior cholecystectomy evident. Trace pneumobilia likely related in the nondependent left lobe liver. Multiple simple left renal cysts identified. Trace gas seen in nondependent urinary bladder of indeterminate etiology. Consider recent instrumentation. Clinically correlate further. Next item prior cholecystectomy. Nonacute colonic diverticulosis scattered throughout. Other lesser findings as discussed above.
--- NOTE | 2017-08-05 01:52 | DS ---
HISTORY OF PRESENT ILLNESS: This is a 76-year-old female who has come in to the hospital because of left eye ptosis. The patient denied any weakness in the arms and the legs. She initially had a CAT scan done that was negative. She was seen by a Neurology, Dr. Wood. According to his history, the patient did have some subtle left-sided weakness. She had brain MRI done that shows chronic microvascular changes seen in the periventricular white matter, was not a good study because patient had refused further scanning. There was motion artifact that was seen. There is no evidence of acute or early subacute infarction. Patient had Carotid Doppler done that shows bilateral 20% to 39% proximal ICA stenosis. Patient was seen by Dr. Martinez because of weight loss. A CT of the abdomen and pelvis was ordered. Patient has lost about 40 pounds in the last 3 to 4 months. She has no complaints of any headaches or dizziness. No nausea. No vomiting. PHYSICAL EXAMINATION: VITAL SIGNS: Temperature is 98, pulse is 68, blood pressure is 171/76. GENERAL: The patient is lying in bed, flat, comfortable. HEENT: No oral lesion. Anicteric sclerae. Moist mucosa. Left eye ptosis. NECK: No JVD, adenopathy, or thyromegaly. CARDIOVASCULAR: S1 and S2, regular. No murmurs, rubs, or gallops. LUNGS: Clear to auscultation bilaterally. No wheeze, rales, or rhonchi. ABDOMEN: Bowel sounds are positive, soft, nontender and nondistended. EXTREMITIES: No cyanosis, clubbing or edema. LABORATORY DATA: White count 5.6, hemoglobin 12.4. Chemistry shows LDL of 177. ASSESSMENT: 1. Left eye ptosis. 2. Transient ischemic attack. 3. Cerebrovascular accident secondary to right middle cerebral artery, lacunar infarct. 4. Hypertension, uncontrolled. 5. Weight loss. 6. Dyslipidemia. 7. Anxiety. PLAN: The patient is currently admitted to the hospital. She is receiving aspirin for her TIA. She is also on Lipitor for dyslipidemia. The patient's blood pressure is elevated. I did increase her lisinopril to 40 mg, continues to be high. I will add Norvasc to her regimen as well. She was seen by Neurology and GI, appreciate their input. Physical therapy has evaluated the patient and had recommended to TCU. I do not believe the TCU takes stroke patients or she may not qualify. I will check with the director of casework services. She is going to continue her heart-healthy diet. Dario Jordan MD
--- NOTE | 2017-08-05 08:11 | CON ---
DATE: 08/04/2017 GENITOURINARY CONSULTATION CHIEF COMPLAINT: Weakness and left eye droop. HISTORY OF PRESENT ILLNESS: This is a 76-year-old female who is admitted to [facility] after she was noted to have left-sided weakness and a left eye ptosis. The patient reports the symptoms present for a few days. I have seen the patient recently as an outpatient regarding recurrent urinary tract infections, urinary frequency and urgency. She has been undergoing a outpatient evaluation. She had a recent renal ultrasound showing renal cysts, but no mass. She is recently treated for a urinary tract infection. Urologically, patient reports she continues with urinary frequency and urgency and has urge incontinence as well. She denies any current dysuria. She denies any fever, chills or flank pain. PAST MEDICAL HISTORY: Significant for type 2 diabetes, hypertension, Alzheimer's. HOME MEDICATIONS: Include Aricept, Zestril and Zoloft. ALLERGIES NO KNOWN DRUG ALLERGIES. FAMILY HISTORY: Noncontributory. SOCIAL HISTORY: No current smoking, but a history of smoking in the past. No EtOH use. REVIEW OF SYSTEMS: 12-point review of systems was obtained. Patient is giving history, but not a perfect historian. On review of systems, she does complain of urinary frequency, urgency and urge incontinence. She does complain of some left-sided weakness. She does complain of some generalized lethargy and dizziness. Does complain of some lower extremity weakness, difficulty ambulating. Does complain of some depression and memory loss. Other systems are negative. PHYSICAL EXAMINATION: GENERAL: Patient is awake and alert, answering questions, in no acute distress. NECK: Supple. There is no adenopathy. VITAL SIGNS: She is afebrile. Temperature of 97.8, BP 154/76, respirations 19. CHEST: Reveals a normal inspiratory effort. CARDIAC: Shows positive S1, S2. There is mild peripheral edema noted. ABDOMEN: The abdomen is soft, nontender, nondistended. There is no hepatosplenomegaly or costovertebral angle tenderness. EXTREMITIES: There is no cyanosis. There is mild edema. LABORATORY EXAMINATION: Urinalysis showed positive nitrates, large wbc, 0 to 2 rbc's, creatinine 0.8 with a GFR greater than 60. WBC count 6.4. Urine culture is pending. IMPRESSION AND PLAN: This is a 76-year-old female with recurrent urinary tract infections. Urologically, patient has been started on antibiotics and we will await the results of her culture. More concerning at this point is the patient's neurologic issues, which appeared to be from an acute cerebrovascular accident. Patient is being seen by Neurology. As far as the recurrent urinary tract infections, patient should follow up in my office after discharge and we can continue to work on this. Her incontinence also is likely secondary to neurologic issues and we will discuss further treatment after her neurologic workup is complete. No acute urologic intervention is needed at this time other than treatment of the urinary infection and patient should continue follow up in my office after discharged from this acute event. Thank you for allowing me to participate in the care of this patient. We will follow her with you. Ez Rojas MD
[2017-08-05 08:24] VITALS: BP 147/76; RESP 20; TEMP 97.7; O2SAT 97
[2017-08-05] MEDS: DONEPEZIL HCL 23 MG PO SCH (09:45)
[2017-08-05] MEDS ORDERED: Cefpodoxime (Vantin) 200 mg Tab PO SCH (10:00)
[2017-08-05 14:08] VITALS: PULSE 91
--- NOTE | 2017-08-05 17:11 | CP.PCM.PN ---
Subjective - Date & Time of Evaluation Date of Evaluation: 08/05/17 Time of Evaluation: 10:00 - Subjective Subjective: Seen and examined at the bedside earlier today, chart reviewed. Patient had CT scan of abdomen chest and pelvis yesterday report to have bilateral bedside basilar dependent atelectasis without acute infiltration, trace pneumobilia related to nondependent left lobe lesion, multiple renal cysts. And trace gas non-dependence urinary bladder consider recent instruments, next item prior to cholecystectomy and diverticulosis. No acute overnight events as per nursing. Patient has episodes of confusion to time. No nausea, vomiting, or abdominal pain. Patient does report poor appetite. No complaints of dysphagia. Objective - Vital Signs/Intake and Output Vital Signs (last 24 hours): Temp Pulse Resp BP Pulse Ox 97.7 F 91 H 20 147/76 97 08/05/17 08:24 08/05/17 14:00 08/05/17 08:24 08/05/17 09:44 08/05/17 08:24 Intake and Output: 08/05/17 08/05/17 06:59 18:59 Intake Total 300 120 Output Total 100 Balance 200 120 - Labs Labs: 08/04/17 06:00 08/04/17 06:00 PT 12.5 SECONDS (9.4-12.5) 08/02/17 16:10 INR 1.09 (0.93-1.08) H 08/02/17 16:10 APTT 28.5 Seconds (25.1-36.5) 08/02/17 16:10 - Constitutional Appears: No Acute Distress - Head Exam Head Exam: NORMOCEPHALIC - Eye Exam Eye Exam: Normal appearance. absent: Scleral icterus - ENT Exam ENT Exam: Mucous Membranes Moist - Neck Exam Neck Exam: Normal Inspection - Respiratory Exam Respiratory Exam: NORMAL BREATHING PATTERN. absent: Respiratory Distress - Cardiovascular Exam Cardiovascular Exam: +S1, +S2 - GI/Abdominal Exam GI & Abdominal Exam: Soft, Normal Bowel Sounds. absent: Guarding, Tenderness, Rebound - Extremities Exam Extremities Exam: absent: Calf Tenderness, Pedal Edema - Neurological Exam Neurological Exam: Alert, Awake, Oriented x3 - Skin Skin Exam: Dry, Warm Assessment and Plan - Assessment and Plan (Free Text) Assessment: Assessment: Transient left arm weakness, ptosis Weight loss of about 30-40 pounds Anorexia Hypertension Diabetes mellitus Plan: change diet to soft hard healthy moderate carb diet, discussed with patient to eat slowly and chew food well May benefit from endoscopy for further evaluation of weight loss when patient is more optimize secondary to recent TIA/stroke on Aspirin As per neurology Plan to be transferred to TCU Seen and examined with Dr. Martinez.
--- NOTE | 2017-08-06 00:02 | DS ---
Please see the discharge summary that was done yesterday. HISTORY OF PRESENT ILLNESS: Patient has no complaints of any chest pain. No shortness of breath. No headaches or dizziness. PHYSICAL EXAMINATION: VITAL SIGNS: Temperature is 97.7, pulse of 78, blood pressure 147/76, respirations 20 and O2 saturation 97%. GENERAL: The patient is lying in bed, flat, comfortable. HEENT: No oral lesion. Anicteric sclerae. Moist mucosa. NECK: No JVD, adenopathy, or thyromegaly. CARDIOVASCULAR: S1 and S2, regular. No murmurs, rubs, or gallops. LUNGS: Clear to auscultation bilaterally. No wheeze, rales, or rhonchi. ABDOMEN: Bowel sounds are positive, soft, nontender and nondistended. EXTREMITIES: no cyanosis, clubbing or edema. CT of the chest, abdomen and pelvis was done. There is no definitive pattern to suggest thoracic or abdominal focal neoplasm. The CAT scan was reviewed. ASSESSMENT: 1. Left eye ptosis. 2. Weight loss. 3. Transient ischemic attack. 4. Cerebrovascular accident secondary to right middle cerebral artery lacunar infarct. 5. Hypertension. 6. Dyslipidemia. 7. Anxiety. PLAN: The patient is currently comfortable. She is going to continue with her aspirin. She is on a heart-healthy diet. She was being followed by Dr. Martinez. The patient is going to the TCU. She has lisinopril that was increased yesterday for her blood pressure. Her blood pressure is better controlled. CONDITION: Stable. ACTIVITY: Increase as tolerated. FOLLOWUP: 1. With Dr. Schulz in 1 to 2 weeks. 2. With GI for possible colonoscopy. Dario Jordan MD
== END 2017-08-05 14:16 | DRG 65 ==
LOC: ED 14:24 → ERH 17:45 → 2RNO 21:26 → 3RNO 08-03 17:02
PROVIDERS: ADMIT Internal Medicine Nephrology; ATTEND Internal Medicine Nephrology
DX: I63.511 Cerebral infarction due to unspecified occlusion or stenosis of right middle cerebral artery (principal); N39.0 Urinary tract infection, site not specified; H02.402 Unspecified ptosis of left eyelid; R53.1 Weakness; I10 Essential (primary) hypertension; E11.9 Type 2 diabetes mellitus without complications; I65.23 Occlusion and stenosis of bilateral carotid arteries; E78.5 Hyperlipidemia, unspecified; G30.9 Alzheimer's disease, unspecified; F02.80 Dementia in other diseases classified elsewhere, unspecified severity, without behavioral disturbance, psychotic disturbance, mood disturbance, and anxiety; N39.41 Urge incontinence; R63.0 Anorexia; R63.4 Abnormal weight loss; F41.9 Anxiety disorder, unspecified; Z87.440 Personal history of urinary (tract) infections; Z87.891 Personal history of nicotine dependence

== ENCOUNTER 2017-08-05 14:18 | Inpatient (IN) | payer OTHER, MEDICARE ==
[2017-08-05 17:34] VITALS: BMI 23.5
[2017-08-05] MEDS: Cefpodoxime (Vantin) 200 mg Tab PO SCH (21:21)
[2017-08-06] MEDS ORDERED: DONEPEZIL 23 MG PO SCH ×2 (10:00→12:24)
[2017-08-06] MEDS: Cefpodoxime (Vantin) 200 mg Tab PO SCH ×2 (10:34→22:07)
--- NOTE | 2017-08-06 12:08 | PN ---
DATE: SUBJECTIVE: The patient's initial H and P was reviewed by me and I agree with, this is the H and P that was done on 08/03/2017. The patient had come into the hospital because of left eye ptosis. She had an evaluation done and it was felt that she may have had a right MCA stroke, although it was not seen on a CAT scan or MRI. The patient has no complaints of any headaches or dizziness. No nausea. No vomiting. PHYSICAL EXAMINATION VITAL SIGNS: Temperature is 97.7, pulse of 73, blood pressure is 90/49, respirations 18. GENERAL: The patient is lying in bed, flat, comfortable. HEENT: No oral lesion. Anicteric sclerae. Moist mucosa. NECK: No JVD, adenopathy, or thyromegaly. CARDIOVASCULAR: S1 and S2, regular. No murmurs, rubs, or gallops. LUNGS: Clear to auscultation bilaterally. No wheeze, rales, or rhonchi. ABDOMEN: Bowel sounds are positive. Soft, nontender and nondistended. EXTREMITIES: No cyanosis, clubbing or edema. ASSESSMENT AND PLAN: 1. Left eye ptosis. 2. Weight loss. 3. Transient ischemic attack. 4. 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 5. Hypertension. 6. Dyslipidemia. 7. Anxiety. PLAN: Neurology has felt that the patient may have had a small infarct. The patient is on the Transitional Care Unit for rehab because of her gait dysfunction. Her blood pressure medications were increased. I will discontinue the patient's Norvasc as her blood pressure is low, but she is still symptomatic. The patient is on Zoloft; this will be continued for depression. She is on Lipitor for dyslipidemia. She is going to continue with aspirin. She had a full evaluation for her weight loss and had a CT of the chest, abdomen and pelvis as well as an evaluation by GI. No specific abnormalities were found. Dario Jordan MD
[2017-08-06 16:48] LABS: URINE BILIRUBIN NEGATIVE (NEGATIVE); URINE BLOOD NEGATIVE (NEGATIVE); URINE GLUCOSE (UA) NEGATIVE (NEGATIVE); URINE LEUKOCYTE ESTERASE NEGATIVE Leu/uL (NEGATIVE); URINE PROTEIN NEGATIVE mg/dL (<30 mg/dL); URINE UROBILINOGEN 0.2 E.U./dL (<1 E.U./dL)
[2017-08-06 16:50] LABS: URINE APPEARANCE CLEAR (CLEAR); URINE COLOR YELLOW (YELLOW)
--- NOTE | 2017-08-06 18:06 | CP.PCM.PN ---
<Lesvia Cody - Last Filed: 08/06/17 18:05> Subjective - Date & Time of Evaluation Date of Evaluation: 08/06/17 Time of Evaluation: 10:20 - Subjective Subjective: Seen and examined at the bedside earlier today, chart review. Patient is pleasantly confused, no reports of acute overnight events. Patient tolerating oral intake no reports of dysphagia. Patient denies nausea, vomiting, or abdominal pain. Unclear of patient's last bowel movement. Patient reports last BM was 1 week ago. Spoke to nursing staff. Objective - Vital Signs/Intake and Output Vital Signs (last 24 hours): Temp Pulse Resp BP Pulse Ox 98.6 F 76 18 124/54 L 99 08/06/17 16:49 08/06/17 16:49 08/06/17 16:49 08/06/17 16:49 08/06/17 16:49 - Medications Medications: Current Medications Aspirin (Ecotrin) 81 mg PO 0800 PITO PRN Reason: Protocol Last Admin: 08/06/17 07:59 Dose: 81 mg Atorvastatin Calcium (Lipitor) 20 mg PO DIN PITO PRN Reason: Protocol Last Admin: 08/06/17 17:30 Dose: 20 mg Cefpodoxime Proxetil (Vantin) 200 mg PO Q12 PITO PRN Reason: Protocol Last Admin: 08/06/17 10:34 Dose: 200 mg Home Med (Home Med) 0 unit PO HS PITO PRN Reason: Protocol Lisinopril (Zestril) 40 mg PO DAILY PITO PRN Reason: Protocol Last Admin: 08/06/17 10:35 Dose: 40 mg Sertraline HCl (Zoloft) 50 mg PO DAILY PITO PRN Reason: Protocol Last Admin: 08/06/17 10:35 Dose: 50 mg - Constitutional Appears: No Acute Distress - Head Exam Head Exam: NORMOCEPHALIC - Eye Exam Eye Exam: Normal appearance. absent: Scleral icterus - ENT Exam ENT Exam: Mucous Membranes Moist - Neck Exam Neck Exam: Normal Inspection - Respiratory Exam Respiratory Exam: NORMAL BREATHING PATTERN. absent: Respiratory Distress - Cardiovascular Exam Cardiovascular Exam: +S1, +S2 - GI/Abdominal Exam GI & Abdominal Exam: Soft, Normal Bowel Sounds. absent: Guarding, Tenderness, Rebound - Extremities Exam Extremities Exam: absent: Calf Tenderness, Pedal Edema - Neurological Exam Neurological Exam: Alert, Altered (confused at times), Awake Assessment and Plan - Assessment and Plan (Free Text) Assessment: Assessment: Transient left arm weakness, ptosis Weight loss of about 30-40 pounds Anorexia Hypertension Diabetes mellitus Plan: soft hard healthy moderate carb diet, discussed with patient to eat slowly and chew food well on Aspirin As per neurology start Colace BID May benefit from endoscopy for further evaluation of weight loss when patient is more optimize secondary to recent TIA/stroke Seen and examined with Dr. Martinez. <Kvng Martinez V - Last Filed: 08/06/17 23:47> Objective - Vital Signs/Intake and Output Vital Signs (last 24 hours): Temp Pulse Resp BP Pulse Ox 98.6 F 76 18 124/54 L 99 08/06/17 16:49 08/06/17 16:49 08/06/17 16:49 08/06/17 16:49 08/06/17 16:49 - Medications Medications: Current Medications Aspirin (Ecotrin) 81 mg PO 0800 PITO PRN Reason: Protocol Last Admin: 08/06/17 07:59 Dose: 81 mg Atorvastatin Calcium (Lipitor) 20 mg PO DIN PITO PRN Reason: Protocol Last Admin: 08/06/17 17:30 Dose: 20 mg Cefpodoxime Proxetil (Vantin) 200 mg PO Q12 PITO PRN Reason: Protocol Last Admin: 08/06/17 22:07 Dose: 200 mg Docusate Sodium (Colace) 100 mg PO BID PITO Home Med (Home Med) 0 unit PO HS PITO PRN Reason: Protocol Last Admin: 08/06/17 22:07 Dose: 1 unit Lisinopril (Zestril) 40 mg PO DAILY PITO PRN Reason: Protocol Last Admin: 08/06/17 10:35 Dose: 40 mg Sertraline HCl (Zoloft) 50 mg PO DAILY PITO PRN Reason: Protocol Last Admin: 08/06/17 10:35 Dose: 50 mg Attending/Attestation - Attestation I have personally seen and examined this patient.: Yes I have fully participated in the care of the patient.: Yes I have reviewed all pertinent clinical information, including history, physical exam and plan: Yes Notes (Text): This is an addendum to GI progress report dictated by Lesvia Cody APN.The patient was seen and examined earlier. Medical records, lab studies, imagings were reviewed. Last 24 hours events reviewed. Agreed with the above treatment plan as outlined in Lesvia Cody APN's notes the with the addition of the following 08/06/17 23:47
[2017-08-06] MEDS: DONEPEZIL 23 MG PO SCH (22:07)
[2017-08-07] MEDS: Cefpodoxime (Vantin) 200 mg Tab PO SCH ×2 (10:45→21:13)
[2017-08-07] MEDS: DONEPEZIL 23 MG PO SCH (21:13)
[2017-08-08 06:32] VITALS: BP 129/81; PULSE 100; RESP 20; TEMP 97.3; O2SAT 98
[2017-08-08] MEDS: Cefpodoxime (Vantin) 200 mg Tab PO SCH (10:01)
--- NOTE | 2017-08-08 23:03 | DS ---
DATE OF DISCHARGE: 08/08/2017 DISCHARGE DIAGNOSES: 1. Right middle cerebral artery lacunar infarct and infarction. 2. Left eye ptosis. 3. Transient ischemic attack. 4. Hypertension. 5. Anxiety. 6. Possible hypercoagulable state. HOSPITAL COURSE: The patient was admitted with left eye ptosis, evaluated by Neurology. She had CAT scan and MRI done during hospitalization. She was started on Lipitor, aspirin and Plavix. She was transferred to transitional care unit for deconditioning. She developed VRE UTI. She is being discharged home in stable condition. PHYSICAL EXAMINATION ON DISCHARGE: VITAL SIGNS: Temperature 98.7, heart rate 80 per minute, blood pressure 110/70. HEENT: Left eye ptosis, improved. CHEST: Air entry present and equal bilaterally. No added sounds. CARDIOVASCULAR: S1, S2 normal. No murmur. No gallop. ABDOMEN: Soft, nontender. No hepatosplenomegaly. EXTREMITIES: No edema. 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 DISCHARGE MEDICATIONS: Aspirin 81 mg daily, Lipitor 20 mg daily, Zyvox 600 mg p.o. b.i.d. for 7 days, lisinopril 40 mg daily, Zoloft 50 mg daily, and Lipitor 20 mg daily. CONDITION ON DISCHARGE: Stable. DISPOSITION: Discharge home. DISCHARGE PLAN: Discussed with the patient. Discussed with the staff nurse. The patient's and daughter will come to take her from the hospital. DIET: Regular diet. DISCHARGE INSTRUCTIONS: Followup with Dr. Loredo in 1 week. Follow up with Dr. Wood in 1 week. Mellisa Bassett MD
--- NOTE | 2017-08-08 23:16 | PN ---
DATE: 08/07/2017 HISTORY OF PRESENT ILLNESS: Ms. Lee is a 76-year-old female admitted to the hospital with left eye ptosis. She was found to have lacunar infarct in the right MCA as per CT and MRI, she is transferred to transitional care unit for deconditioning. REVIEW OF SYSTEM: As per HPI; rest of the 12-point review of systems reviewed and negative. PHYSICAL EXAMINATION: GENERAL: Comfortable in bed, in no acute distress. VITAL SIGNS: Temperature 98.7, heart rate 80 per minute, blood pressure 100/70, respiratory rate 18 per minute, oxygen saturation 98% on room air. HEENT: Normal. NECK: Supple. CHEST: Air entry present and equal bilaterally. No added sounds. CARDIOVASCULAR: S1 and S2 normal. No murmur. No gallop. LUNGS: Clear to auscultation bilaterally. ABDOMEN: Soft, nontender. No hepatosplenomegaly. EXTREMITIES: No edema. No cyanosis. LABORATORY DATA: Labs reviewed. MEDICATIONS: Reviewed. ASSESSMENT AND PLAN: Left eye ptosis, middle cerebral artery lacunar infarct, hypertension, anxiety, dyslipidemia, possible hypercoagulable state. She is currently going to physical therapy for deconditioning. We will continue Norvasc for blood pressure and Zoloft for depression. She is asking to be discharged, her had a myocardial infarction and home alone. Continue aspirin 81 mg daily. Advised to continue physical therapy. I will discuss with the staff nurse during the transport for possible discharge tomorrow, as she has a family emergency. Mellisa Bassett MD
== END 2017-08-08 14:03 | disposition home or self-care (01) | DRG 57 ==
LOC: TRCU 14:18
PROVIDERS: ADMIT Internal Medicine Nephrology; ATTEND Internal Medicine Nephrology
PROC: F07Z9ZZ Gait Training/Functional Ambulation Treatment (ICD-10-PCS; principal; 2017-08-07)
PROC: F07Z8ZZ Transfer Training Treatment (ICD-10-PCS; 2017-08-07)
PROC: F08Z1ZZ Dressing Techniques Treatment (ICD-10-PCS; 2017-08-07)
DX: I69.398 Other sequelae of cerebral infarction (principal); H02.402 Unspecified ptosis of left eyelid; I69.334 Monoplegia of upper limb following cerebral infarction affecting left non-dominant side; N39.0 Urinary tract infection, site not specified; D68.59 Other primary thrombophilia; I10 Essential (primary) hypertension; R63.0 Anorexia; R63.4 Abnormal weight loss; E11.9 Type 2 diabetes mellitus without complications; F41.9 Anxiety disorder, unspecified; E78.5 Hyperlipidemia, unspecified; F32.9 Major depressive disorder, single episode, unspecified; B95.2 Enterococcus as the cause of diseases classified elsewhere; Z16.21 Resistance to vancomycin

== ENCOUNTER 2017-08-18 10:43 | Inpatient (IN) | payer MEDICARE ==
--- NOTE | 2017-08-18 11:00 | ED PDOC ---
Arrival/HPI - General Time Seen by Provider: 08/18/17 10:46 Historian: Patient, Spouse - History of Present Illness Narrative History of Present Illness (Text): 08/18/17 11:00 This 76 yo female presents to this emergency department with her complaining of b/l lower back pain x 1 week. Patient admits urinary frequency. Patient stated she has difficulty ambulating due to pain. Patient also noted feeling Chills within last 2 weeks. Patient denies recent trauma, /GI incontinence, saddle anesthesias, weakness, paresthesias, or dizziness.. Time/Duration: Other (see hpi) Context: Home Past Medical History - Provider Review Nursing Documentation Reviewed: Yes - Past History Past History: No Previous - Infectious Disease Hx of Infectious Diseases: None - Tetanus Immunization Tetanus Immunization: Unknown - Cardiac Hx Cardiac Disorders: Yes Hx Hypertension: Yes - Pulmonary Hx Respiratory Disorders: No - Neurological Hx Neurological Disorder: Yes Hx Paralysis: No Other/Comment: carpal tunnel - HEENT Hx HEENT Disorder: No - Renal Hx Renal Disorder: No - Endocrine/Metabolic Hx Diabetes Mellitus Type 2: Yes - Hematological/Oncological Hx Blood Disorders: No Hx Blood Transfusions: No Hx Blood Transfusion Reaction: No - Integumentary Hx Dermatological Disorder: No - Musculoskeletal/Rheumatological Hx Falls: Yes - Gastrointestinal Hx Gastrointestinal Disorders: No - Genitourinary/Gynecological Hx Genitourinary Disorders: No Hx Reproductive Disorders: No - Psychiatric Hx Psychophysiologic Disorder: No Hx Anxiety: No Hx Bipolar Disorder: No Hx Depression: No Hx Emotional Abuse: No Hx Hallucinations: No Hx Panic Disorder: No Hx Post Traumatic Stress Disorder: No Hx Psychosis: No Hx Physical Abuse: No Hx Schizophrenia: No Hx Sexual Abuse: No Hx Substance Use: No - Surgical History Hx Cholecystectomy: Yes Hx Hysterectomy: Yes Other/Comment: carpal tunnel, left breast cyst removal - Anesthesia Hx Anesthesia: Yes Hx Anesthesia Reactions: No Hx Malignant Hyperthermia: No - Suicidal Assessment Feels Threatened In Home Enviroment: No Family/Social History - Physician Review Nursing Documentation Reviewed: Yes Family/Social History: Other (noncontributory) Smoking Status: Never Smoked Hx Alcohol Use: No Hx Substance Use: No Hx Substance Use Treatment: No Allergies/Home Meds Allergies/Adverse Reactions: Allergies No Known Allergies Allergy (Verified 08/18/17 11:05) Review of Systems - Review of Systems Constitutional: Other ((+) chills). absent: Fatigue, Weight Change, Fevers Eyes: Normal. absent: Photophobia ENT: Normal. absent: Sore Throat, Rhinorrhea Respiratory: Normal. absent: SOB, Cough Cardiovascular: Normal. absent: Chest Pain Gastrointestinal: Normal. absent: Abdominal Pain, Nausea, Vomiting Genitourinary Female: Frequency. absent: Dysuria, Vaginal Bleeding, Vaginal Discharge Musculoskeletal: Back Pain, Myalgias Skin: Normal. absent: Rash Neurological: Normal. absent: Headache, Dizziness, Focal Weakness, Gait Changes , Speech Changes, Facial Droop, Disequilibrium, Seizure Endocrine: Normal Hemo/Lymphatic: Normal Psychiatric: Normal Physical Exam Vital Signs Temp Pulse Resp BP Pulse Ox 08/18/17 13:00 79 18 135/69 97 08/18/17 11:19 98.0 F 85 18 138/71 97 Temperature: Afebrile Blood Pressure: Normal Pulse: Regular Respiratory Rate: Normal Appearance: Positive for: Well-Appearing, Non-Toxic, Comfortable Pain Distress: None Mental Status: Positive for: Alert and Oriented X 3 - Systems Exam Head: Present: Atraumatic, Normocephalic Pupils: Present: PERRL Extroacular Muscles: Present: EOMI Conjunctiva: Present: Normal Mouth: Present: Moist Mucous Membranes Neck: Present: Normal Range of Motion Respiratory/Chest: Present: Clear to Auscultation, Good Air Exchange. No: Respiratory Distress, Accessory Muscle Use Cardiovascular: Present: Regular Rate and Rhythm, Normal S1, S2. No: Murmurs Abdomen: No: Tenderness, Distention, Peritoneal Signs Back: Present: Normal Inspection, Paraspinal Tenderness ((+) b/l paravertebral tenderness.). No: CVA Tenderness, Midline Tenderness Upper Extremity: Present: Normal Inspection, Normal ROM. No: Cyanosis, Edema Lower Extremity: Present: Normal Inspection, Normal ROM. No: Edema Neurological: Present: GCS=15, CN II-XII Intact, Speech Normal Skin: Present: Warm, Dry, Normal Color. No: Rashes Psychiatric: Present: Alert, Oriented x 3, Normal Insight, Normal Concentration Medical Decision Making ED Course and Treatment: 08/18/17 13:13 I spoke with CHELSI Castaneda regarding acute cystitis x 1 week. He is aware last visit in this hospital x 2 weeks ago, patient had urine culture which demonstrates multi resistant enteroccocus bacteria. He recommended admission for IV antibiotic, and consult with Dr. Page, VIOLET 08/18/17 13:[address] Page, ID, who recommended Zyvox 600 mg IVP 08/18/17 14:17 Patient agreed with plan for admission Re-evaluation Time: 13:28 Reassessment Condition: Re-examined, Improving,but remains with symptoms - Lab Interpretations Lab Results: 08/18/17 11:45 08/18/17 11:45 Lab Results 08/18/17 11:45: Sodium 141, Potassium 3.7, Chloride 102, Carbon Dioxide 29, Anion Gap 14, BUN 14, Creatinine 0.8, Est GFR ( Amer) > 60, Est GFR (Non- Af Amer) > 60, Random Glucose 123 H, Calcium 9.3, Total Bilirubin 0.8, AST 28, ALT 43, Alkaline Phosphatase 67, Total Protein 6.9, Albumin 4.2, Globulin 2.7, Albumin/Globulin Ratio 1.5 08/18/17 11:45: Urine Color Yellow, Urine Appearance Clear, Urine pH 7.0, Ur Specific [place] 1.015, Urine Protein Trace H, Urine Glucose (UA) Negative, Urine Ketones Negative, Urine Blood Trace-intact H, Urine Nitrate Positive H, Urine Bilirubin Negative, Urine Urobilinogen 0.2, Ur Leukocyte Esterase Moderate H, Urine RBC 2 - 5, Urine WBC 20 - 25, Ur Epithelial Cells 4 - 5, Amorphous Sediment Few, Urine Bacteria Large, Urine Other Uyeast 08/18/17 11:45: WBC 5.7, RBC 4.38, Hgb 12.9, Hct 39.0, MCV 89.0, MCH 29.5, MCHC 33.1, RDW 12.9, Plt Count 148, MPV 10.3, Gran % 68.3 H, Lymph % (Auto) 26.5, [place] % (Auto) 4.0, Eos % (Auto) 0.7 L, Baso % (Auto) 0.5, Gran # 3.91, Lymph # ( Auto) 1.5, [place] # (Auto) 0.2, Eos # (Auto) 0.0, Baso # (Auto) 0.03 I have reviewed the lab results: Yes Interpretation: No clinic. lab abnormalty - RAD Interpretation Radiology Orders: 08/18/17 13:10 CHEST PORTABLE [RAD] Stat - EKG Interpretation Interpreted by ED Physician: Yes (NSR @ [address] changes) Type: 12 lead EKG Comparison: Similar to previous EKG - Medication Orders Current Medication Orders: Linezolid (Zyvox 600mg/300ml D5w) 600 mg in 300 mls @ 200 mls/hr IVPB STAT STA PRN Reason: Protocol Stop: 08/18/17 14:49 Last Admin: 08/18/17 13:43 Dose: 200 mls/hr eMAR Start Stop Document 08/18/17 13:43 LC (Rec: 08/18/17 13:43 LC [id number]) Intravenous Solution Start Date 08/18/17 Start Time 13:43 Discontinued Medications Ketorolac Tromethamine (Toradol) 15 mg IVP STAT STA Stop: 08/18/17 13:31 Last Admin: 08/18/17 13:55 Dose: 15 mg MAR Pain Assessment Document 08/18/17 13:55 LC (Rec: 08/18/17 13:55 LC [id number]) Pain Reassessment Is this a pain reassessment? No IVP Administration Document 08/18/17 13:55 LC (Rec: 08/18/17 13:55 LC [id number]) Charges for Administration # of IVP Administrations 1 Disposition/Present on Arrival - Present on Arrival Any Indicators Present on Arrival: No History of DVT/PE: No History of Uncontrolled Diabetes: No Urinary Catheter: No History Surgical Site Infection Following: None - Disposition Have Diagnosis and Disposition been Completed?: Yes Diagnosis: Intractable low back pain, Cystitis, VRE (vancomycin resistant enterococcus) culture positive Disposition: HOSPITALIZED Disposition Time: 13:34 Patient Problems: Current Active Problems Problem Status Onset Intractable low back pain Acute Cystitis Acute VRE (vancomycin resistant enterococcus) culture positive Acute Condition: IMPROVED
[2017-08-18 12:09] LABS: BASO # 0.03 K/mm3 (0.0-2.0); BASO % 0.5 % (0.0-3.0); EOS % 0.7 % (1.5-5.0); GRAN # 3.91 (1.4-6.5); GRAN % 68.3 % (50.0-68.0); HEMOGLOBIN 12.9 g/dL (12.0-16.0); LYMPH # 1.5 (1.2-3.4); LYMPH % 26.5 % (22.0-35.0); MEAN CORPUSCULAR HEMOGLOBIN 29.5 pg (25.0-35.0); MEAN CORPUSCULAR HGB CONC 33.1 g/dl (31.0-37.0); MEAN PLATELET VOLUME 10.3 fl (7.0-11.0); MONO # 0.2 (0.1-0.6); RBC 4.38 10^6/uL (3.5-6.1); RED CELL DISTRIBUTION WIDTH 12.9 % (11.5-14.5); URINE BILIRUBIN NEGATIVE (NEGATIVE); URINE BLOOD TRACE-INTACT (NEGATIVE); URINE GLUCOSE (UA) NEGATIVE (NEGATIVE); URINE LEUKOCYTE ESTERASE MODERATE Leu/uL (NEGATIVE); URINE PROTEIN TRACE mg/dL (<30 mg/dL); URINE UROBILINOGEN 0.2 E.U./dL (<1 E.U./dL); WHITE BLOOD COUNT 5.7 10^3/ul (4.5-11.0)
[2017-08-18 12:19] LABS: URINE APPEARANCE CLEAR (CLEAR); URINE COLOR YELLOW (YELLOW)
[2017-08-18 12:26] LABS: URINE WBC 20 - 25 /hpf (0-6)
[2017-08-18 12:27] LABS: URINE AMORPHOUS SEDIMENT FEW; URINE BACTERIA LARGE (NEG)
[2017-08-18 12:30] LABS: ALB/GLOB RATIO 1.5 (1.1-1.8); ALBUMIN 4.2 g/dL (3.0-4.8); ALT/SGPT 43 U/L (7-56); AST/SGOT 28 U/L (14-36); BLOOD UREA NITROGEN 14 mg/dL (7-21); CALCIUM 9.3 mg/dL (8.4-10.5); GFR AFRICAN-AMERICAN > 60; GFR NON-AFRICAN AMERICAN > 60
[2017-08-18] MEDS ORDERED: Linezolid 600 mg in D5W 300 ml 600 MG/300 ML BAG IVPB STA (13:20)
--- NOTE | 2017-08-18 13:51 | RAD ---
HISTORY: admission COMPARISON: 08/02/2017 FINDINGS: LUNGS: No active pulmonary disease. PLEURA: No significant pleural effusion identified, no pneumothorax apparent. CARDIOVASCULAR: No radiographic findings to suggest acute or significant cardiovascular disease. OSSEOUS STRUCTURES: No significant abnormalities. VISUALIZED UPPER ABDOMEN: Normal. OTHER FINDINGS: None. IMPRESSION: No active disease. No significant interval change compared to the prior examination(s).
--- NOTE | 2017-08-18 22:10 | CARD ---
APPROVED REPORT EKG Measurement Heart [id number] <Conclusion> Normal sinus rhythm Prolonged QT Abnormal ECG
[2017-08-18 23:18] VITALS: BMI 21.9
[2017-08-18] MEDS ORDERED: Pneumococcal 23-Valent Vaccine IM ONE (23:18)
[2017-08-19] MEDS ORDERED: Iohexol 350 MG/100 ML VIAL ONE (13:19)
--- NOTE | 2017-08-19 14:19 | CT ---
PROCEDURE: CT Lumbar Spine without contrast HISTORY: back pain COMPARISON: None. TECHNIQUE: Axial computed tomography images were obtained of the lumbar spine following the use of intravenous contrast. Coronal and sagittal reformatted images were created and reviewed. Contrast Dose: Omnipaque 350, 100 cc Radiation dose: Total exam DLP = 496.90 mGy-cm. This CT exam was performed using one or more of the following dose reduction techniques: Automated exposure control, adjustment of the mA and/or kV according to patient size, and/or use of iterative reconstruction technique. FINDINGS: VERTEBRAE: A mild compression fracture of the L2 vertebral body appears generally symmetric between the anterior and posterior segments of the vertebral body. Lucency approaching upper endplate is suspicious for fracture plane indicating acute or subacute fracture. Additional fracture of T12 appears mild as well but is of indeterminate age. Vacuum disc changes are identified within the intervertebral disc at L1-2 with remaining intervertebral discs unremarkable. No definite spondylolisthesis appreciated. The overall lordotic curvature appears somewhat accentuated. A minimal levoscoliotic lumbar spinal deformity is questioned. No suspicious contrast enhances identified throughout the examination. DISCS/SPINAL CANAL/NEURAL FORAMINA: L1-2: Limited disc bulging is appreciate without significant stenosis of the central canal. Borderline bilateral neural foraminal stenosis. L2-3: Minimal disc bulging is appreciate without significant stenosis resulting throughout the central canal. Mild bilateral neural foraminal stenosis appreciated however. L3-4: Limited disc bulging is appreciate without neural foraminal stenosis or central canal stenosis. L4-5: Minimal disc bulge is identified. Relatively prominent facet joint arthropathy however encroaches the bilateral lateral recesses with this disc bulge. The central canal nevertheless is not significantly stenosed overall. Borderline left greater than right neural foraminal stenosis due to asymmetry in facet joint arthropathy. L5-S1: Relatively prominent facet joint degenerative changes are identified without central canal or neural foraminal stenosis. PARASPINAL SOFT TISSUES: Unremarkable. OTHER FINDINGS: Incidental upper pole left renal cyst. There is partial visualization of nonacute sigmoid diverticular changes. IMPRESSION: 1. Mild likely acute or subacute compression fracture L2. No spondylolisthesis or fragmentation appreciable. No significant central canal stenosis associated. An incidental mild T12 compression fracture is also noted but without lucent fracture defect to suggest acute timeframe. Acute fracture is not completely excluded nevertheless. 2. No suspicious soft tissue enhancement. If soft tissue pathology is clinically suspected then follow-up MRI is advised which provides greater soft tissue resolution than CT. 3. Minimal multilevel degenerative disc bulging. Multilevel facet arthropathy seen worst at the inferior lumbar spine with encroachment lateral recess identified at L4-5 bilaterally.
[2017-08-19] MEDS ORDERED: DAPTOmycin 500 mg Inj (Cubicin) IV SCH (18:45)
[2017-08-19] MEDS: Meropenem IV 1 gm in NS 50 ML IVPB SCH ×2 (19:01→22:21)
--- NOTE | 2017-08-20 03:14 | HP ---
CHIEF COMPLAINT AND HISTORY OF PRESENT ILLNESS: This is a 76-year-old female who is coming into the hospital, brought in by her because of lower back pain for the past week. The patient has been having difficulty in ambulating. The patient was recently discharged from the transitional care unit. She had been on Zyvox for Enterococcus in the urine that was VRE. She had finished her antibiotics, according to the patient's that I spoke with. She does have underlying dementia and so it is difficult to get a full history from the patient. REVIEW OF SYMPTOMS: The review of symptoms is limited because of the patient's underlying dementia. ALLERGIES: NO KNOWN DRUG ALLERGIES. HOME MEDICATIONS: Have been reviewed. SOCIAL HISTORY: She is a former smoker, but does not smoke or drink currently. FAMILY HISTORY: Noncontributory. PAST MEDICAL HISTORY: Carpal tunnel syndrome, hypertension, also has past medical history of TIA, dyslipidemia. PHYSICAL EXAMINATION: VITAL SIGNS: The patient has a temperature of 97.9, pulse of 64, blood pressure 144/78, respirations 20, O2 saturation 98%. GENERAL: The patient lying in bed, uncomfortable, and in no acute distress. HEENT: Atraumatic and normocephalic. Anicteric sclerae. Moist mucosa. [employer] conjunctivae. No oral lesions. NECK: No JVD, anterior and posterior adenopathy, thyromegaly, or bruits. CARDIOVASCULAR: S1 and S2 regular. No murmur, rubs, or gallop. LUNGS: Clear to auscultation bilaterally. No wheezes, rales, or rhonchi. ABDOMEN: Bowel sounds are positive. Soft, nontender and nondistended. No hepatosplenomegaly. No rebound and no guarding. EXTREMITIES: No cyanosis, clubbing, or edema. NEUROLOGIC: No facial asymmetry. Tongue is midline. No uvula deviation. Power is 5/5 upper extremity and lower extremity. Sensation intact in upper extremity and lower extremity. PSYCHIATRIC: She is awake, alert, and oriented x1. No anxiety or depression. She has normal affect. GENITOURINARY: No CVA tenderness. VASCULAR: 2+ pulses in the carotid pulses and pedal pulses. SKIN: No erythema or nodules. SPINE: Shows normal curvature. LABORATORY DATA: White count 5.7, hemoglobin 12.9. Chemistry shows a sodium is 141, potassium is 3.7, creatinine is 0.8. Nitrites are positive. Bilirubin is negative. Esterase is moderate. Chest x-ray done shows no active disease. EKG shows sinus rhythm with a heart rate of 74. CT of the LS spine shows mild acute or subacute compression of L2. There is also multi degenerative disk bulges and multi facet arthropathy worse in L4-L5. ASSESSMENT: 1. Fall. 2. Back pain secondary to degenerative joint disease and subacute compression fracture of L2. 3. Hypertension. 4. Dyslipidemia. 5. Anxiety. 6. Dementia, probably Alzheimer's type. 7. History of vancomycin-resistant Enterococcus. PLAN: The patient is currently admitted to the hospital. She had a fall and LS spine CAT scan done was reviewed. Patient is on aspirin. She is continued on Lipitor for dyslipidemia. She is on lisinopril for her hypertension. I will hold her antibiotics and Dr. Page will follow the patient. She has finished 7-day course of Zyvox for vancomycin-resistant Enterococcus. I did speak to the patient's , Aldo, to give him an update on the patient's diagnoses and plan of care. The patient has blood cultures x2 that have been negative. We will await urine culture results. She has been getting physical therapy at home and visiting nurses. We will continue to follow closely. Dario Jordan MD
[2017-08-20] MEDS: Meropenem IV 1 gm in NS 50 ML IVPB SCH (06:19)
--- NOTE | 2017-08-20 06:22 | CON ---
DATE: LOCATION: The patient was seen earlier this morning in room 561, bed 1. CHIEF COMPLAINT: Back pain x1 week duration. HISTORY OF PRESENT ILLNESS: This is a 76-year-old female with past medical history significant for diabetes mellitus, carpal tunnel syndrome, hypertension, coronary artery disease, hyperlipidemia, who has unsteady gait, uses a cane and has had a history of hysterectomy and cholecystectomy, who was admitted now with back pain for 1 week. The patient also had been having dysuria and frequency, and had cultures as outpatient which showed VRE, and now admitted with dysuria, frequency, occasional chills, and back pain mostly in the center. REVIEW OF SYSTEMS: A 12-point review of systems is noted and reviewed. There is no chest pain, no shortness of breath or cough. No headaches or blurred vision. No bright red blood per rectum. No melena and no new weakness and no focal weakness in the lower extremity. PAST MEDICAL HISTORY: Significant for hypertension, diabetes, coronary artery disease, hyperlipidemia, unsteady gait, uses a cane, carpal tunnel syndrome. PAST SURGICAL HISTORY: Significant for cholecystectomy and hysterectomy. ALLERGIES: THE PATIENT HAS NO KNOWN ALLERGIES. MEDICATIONS AT HOME: Include the patient to be on Zoloft including Lipitor, aspirin, Zestril and Aricept. PHYSICAL EXAMINATION GENERAL: The patient is in bed, with no acute distress, and slow to respond, and appears much older than her stated age. VITAL SIGNS: Temperature of 98, pulse of 72, respiratory rate of 18, blood pressure of 155/82, pulse oximetry is 98% on room air. HEENT: Unremarkable. NECK: Supple. LUNGS: Have decreased breath sounds. HEART: Normal S1 and S2. ABDOMEN: Soft and nontender. No organomegaly. No rebound. No guarding. No masses. There is no CVA tenderness bilaterally. LABORATORY DATA: Reveals a white count of 5.7, hemoglobin of 12, platelets of 148. Chemistries reveals a random glucose of 123. Urinalysis is 20 to 25 wbc's, large bacteria. There is yeast. There is moderate leukocyte esterase, positive nitrite. Cultures: Blood cultures are reported to be negative. Urine cultures from yesterday is a Gram-negative emma. Cultures from 08/06/2017 is a VRE, sensitive to Zyvox. ASSESSMENT AND PLAN: This is a 76-year-old female with diabetes mellitus, hypertension, coronary artery disease, hyperlipidemia, unsteady gait, with , history of cholecystectomy, hysterectomy, now presenting with vancomycin-resistant enterococcus cystitis and must rule out pyelonephritis, now with a Gram-negative emma cystitis and pyelonephritis, unable to use Zyvox in this patient who is on Zoloft, so we will use daptomycin and meropenem. We will check on the identification and sensitivity of the Gram-negative rods. We will order a CAT scan of the abdomen and pelvis to rule out a pyelonephritis, and we will use daptomycin and meropenem, unable to use Zyvox because of the Zoloft. Check on the CAT scan of the abdomen and pelvis, check on the final blood cultures and we will check on the identification and sensitivity of the Gram-negative rods and we will follow with you. Gregorio Page MD
[2017-08-20] MEDS ORDERED: Barium Sulfate Susp 2.1% w/v, 2.0% w/w 450 mL Bottle PO ONE (07:25)
[2017-08-20 09:25] VITALS: PULSE 66; RESP 18; TEMP 98; O2SAT 95
--- NOTE | 2017-08-20 10:42 | PN ---
DATE: 08/20/2017 SUBJECTIVE: The patient has no complaints of any chest pain, no shortness of breath, no headache, no dizziness. PHYSICAL EXAMINATION VITAL SIGNS: Temperature is 98.6, pulse of 82, blood pressure 164/83, respirations 20 and O2 saturation is 97%. GENERAL: The patient is lying in bed, flat, comfortable. HEENT: No oral lesion. Anicteric sclerae. Moist mucosa. NECK: No JVD, adenopathy, or thyromegaly. CARDIOVASCULAR: S1 and S2, regular. No murmurs, rubs, or gallops. LUNGS: Clear to auscultation bilaterally. No wheeze, rales, or rhonchi. ABDOMEN: Bowel sounds are positive. Soft, nontender and nondistended. EXTREMITIES: No cyanosis, clubbing or edema. LABORATORY DATA: Urine culture showed Gram-negative rods. ASSESSMENT 1. Urinary tract infection secondary to Gram-negative rods. 2. Fall. 3. Back pain secondary to degenerative joint disease and subacute compression fracture of L2. 4. Hypertension. 5. Dyslipidemia. 6. Anxiety. 7. Dementia, Alzheimer type. 8. History of vancomycin-resistant Enterococcus. PLAN: The patient is currently comfortable. She is on daptomycin for antibiotics. The patient is on meropenem for antibiotics as well. She is on lisinopril for her hypertension. She is on Lipitor for dyslipidemia. The CT of the abdomen and pelvis has been ordered to rule out pyelonephritis. The patient is on a heart-healthy diet. She will need physical therapy evaluation. culture results. Dario Jordan MD
--- NOTE | 2017-08-20 12:20 | CT ---
PROCEDURE: CT Abdomen and Pelvis with contrast HISTORY: Pyelonephritis suspected. Intractable back pain. COMPARISON: 08/04/2017 CT thorax abdomen and pelvis August 19, 2017. Heart CT lumbar spine following administration of intravenous contrast TECHNIQUE: Contrast dose: Oral contrast only. Radiation dose: Total exam DLP = 450.30 mGy-cm. This CT exam was performed using one or more of the following dose reduction techniques: Automated exposure control, adjustment of the mA and/or kV according to patient size, and/or use of iterative reconstruction technique. FINDINGS: LOWER THORAX: Unremarkable. LIVER: Unremarkable. No gross lesion or ductal dilatation. There are again identified in the non dilated common bile duct and intrahepatic bile ducts. GALLBLADDER AND BILE DUCTS: Status post cholecystectomy. No abnormality is seen in the gallbladder fossa. PANCREAS: Unremarkable. No gross lesion or ductal dilatation. SPLEEN: Unremarkable. ADRENALS: Unremarkable. No mass. KIDNEYS AND URETERS: Residual contrast from recent CT scan identified collecting systems. . No hydronephrosis. No solid mass. No interval change with respect to the prior CT 08/04/2017. VASCULATURE: Unremarkable. No aortic aneurysm. BOWEL: Diverticulosis without an acute inflammatory component or other associated pathologic process. APPENDIX: Normal appendix. PERITONEUM: Unremarkable. No free fluid. No free air. LYMPH NODES: Unremarkable. No enlarged lymph nodes. BLADDER: Contrast fills the urinary bladder consistent with recent contrast-enhanced CT scan. No focal or diffuse abnormalities are apparent. REPRODUCTIVE: Prior hysterectomy BONES: No acute fracture. OTHER FINDINGS: None. IMPRESSION: No acute findings related to/accounting for the clinical presentation. Additional benign and/or incidental findings described above.
[2017-08-20 13:21] VITALS: BP 144/82
== END 2017-08-20 15:10 | disposition home health service (06) | DRG 690 ==
LOC: ED 10:43 → ERH 13:20 → 5RNO 21:18
PROVIDERS: ADMIT Internal Medicine Nephrology; ATTEND Internal Medicine Nephrology
DX: N30.00 Acute cystitis without hematuria (principal); S32.029A Unspecified fracture of second lumbar vertebra, initial encounter for closed fracture; I10 Essential (primary) hypertension; B95.2 Enterococcus as the cause of diseases classified elsewhere; Z16.22 Resistance to vancomycin related antibiotics; I25.10 Atherosclerotic heart disease of native coronary artery without angina pectoris; E11.9 Type 2 diabetes mellitus without complications; E78.5 Hyperlipidemia, unspecified; R26.2 Difficulty in walking, not elsewhere classified; G56.00 Carpal tunnel syndrome, unspecified upper limb; F41.9 Anxiety disorder, unspecified; G30.9 Alzheimer's disease, unspecified; F02.80 Dementia in other diseases classified elsewhere, unspecified severity, without behavioral disturbance, psychotic disturbance, mood disturbance, and anxiety; M47.896 Other spondylosis, lumbar region; W19.XXXA Unspecified fall, initial encounter; Z86.73 Personal history of transient ischemic attack (TIA), and cerebral infarction without residual deficits; Z79.84 Long term (current) use of oral hypoglycemic drugs; Z87.891 Personal history of nicotine dependence; Z79.82 Long term (current) use of aspirin

== ENCOUNTER 2018-06-07 13:07 | Emergency (ER) | payer MEDICARE ==
[2018-06-07 13:07] VITALS: BMI 21.9
[2018-06-07 13:40] VITALS: RESP 18; TEMP 97.8
--- NOTE | 2018-06-07 15:26 | CT ---
Date of service: 06/07/2018 PROCEDURE: CT HEAD WITHOUT CONTRAST. HISTORY: s/p trauma COMPARISON: 08/02/2017 TECHNIQUE: Axial computed tomography images were obtained through the head/brain without intravenous contrast. Radiation dose: Total exam DLP = 868.47 mGy-cm. This CT exam was performed using one or more of the following dose reduction techniques: Automated exposure control, adjustment of the mA and/or kV according to patient size, and/or use of iterative reconstruction technique. FINDINGS: HEMORRHAGE: No intracranial hemorrhage. BRAIN: No mass effect or edema. Chronic microvascular changes are seen in the periventricular white matter. VENTRICLES: Unremarkable. No hydrocephalus. CALVARIUM: Unremarkable. PARANASAL SINUSES: Unremarkable as visualized. No significant inflammatory changes. MASTOID AIR CELLS: Unremarkable as visualized. No inflammatory changes. OTHER FINDINGS: There is dilatation and tortuosity of the basilar artery IMPRESSION: No acute intracranial findings
--- NOTE | 2018-06-07 16:03 | ED PDOC ---
Arrival/HPI - General Chief Complaint: Trauma Time Seen by Provider: 06/07/18 13:41 Historian: Patient - History of Present Illness Narrative History of Present Illness (Text): 06/07/18 15:58 77yo female with pmhx of Dementia, hypertension bib the daughter with complaint of left shoulder/elbow pain s/p trauma today. Patient states she slipped, fell and landed on her left arm. Denies hitting her head on the ground. Notes worsen ing pain with abduction. Denies nausea, dizziness, focal weakness, paresthesia, any worsening symptoms. Past Medical History - Provider Review Nursing Documentation Reviewed: Yes - Past History Past History: No Previous - Infectious Disease Hx of Infectious Diseases: None - Tetanus Immunization Tetanus Immunization: Unknown - Cardiac Hx Cardiac Disorders: Yes Hx Hypertension: Yes - Pulmonary Hx Respiratory Disorders: No - Neurological Hx Neurological Disorder: Yes (PTOSIS,L EYELID DROOP) HX Cerebrovascular Accident: Yes (DENIES) Other/Comment: carpal tunnel - HEENT Hx HEENT Disorder: No - Renal Hx Renal Disorder: No - Endocrine/Metabolic Hx Endocrine Disorders: Yes Hx Diabetes Mellitus Type 2: Yes - Hematological/Oncological Hx Blood Disorders: No - Integumentary Hx Dermatological Disorder: No - Musculoskeletal/Rheumatological Hx Musculoskeletal Disorders: Yes Hx Falls: Yes Hx Unsteady Gait: Yes (CANE) - Gastrointestinal Hx Gastrointestinal Disorders: No - Genitourinary/Gynecological Hx Genitourinary Disorders: No - Psychiatric Hx Psychophysiologic Disorder: No Hx Anxiety: No Hx Bipolar Disorder: No Hx Depression: No Hx Emotional Abuse: No Hx Hallucinations: No Hx Panic Disorder: No Hx Post Traumatic Stress Disorder: No Hx Psychosis: No Hx Physical Abuse: No Hx Schizophrenia: No Hx Sexual Abuse: No Hx Substance Use: No - Surgical History Hx Cholecystectomy: Yes Hx Hysterectomy: Yes Other/Comment: carpal tunnel, left breast cyst removal - Anesthesia Hx Anesthesia: Yes Hx Anesthesia Reactions: No Hx Malignant Hyperthermia: No - Suicidal Assessment Feels Threatened In Home Enviroment: No Family/Social History - Physician Review Nursing Documentation Reviewed: Yes Family/Social History: Unknown Family HX Smoking Status: Never Smoked Hx Alcohol Use: No Hx Substance Use: No Hx Substance Use Treatment: No Allergies/Home Meds Allergies/Adverse Reactions: Allergies No Known Allergies Allergy (Verified 08/18/17 17:44) Home Medications: Home Meds Medication Instructions Recorded Confirmed Donepezil HCl [Aricept] 23 mg PO DAILY 08/18/17 08/18/17 Review of Systems - Physician Review All systems were reviewed & negative as marked: Yes - Review of Systems Constitutional: Normal Eyes: Normal ENT: Normal Respiratory: Normal Cardiovascular: Normal Gastrointestinal: Normal Genitourinary Female: Normal Musculoskeletal: Arthralgias (Left shoulder/elbow pain) Skin: Normal Neurological: Normal Endocrine: Normal Hemo/Lymphatic: Normal Psychiatric: Normal Physical Exam Vital Signs Reviewed: Yes Vital Signs Temp Pulse Resp BP Pulse Ox 06/07/18 13:08 97.8 F 80 18 147/74 97 Temperature: Afebrile Blood Pressure: Normal Pulse: Regular Respiratory Rate: Normal Appearance: Positive for: Well-Appearing, Non-Toxic, Comfortable Pain Distress: None Mental Status: Positive for: Alert and Oriented X 3 - Systems Exam Head: Present: Atraumatic, Normocephalic Pupils: Present: PERRL Extroacular Muscles: Present: EOMI Conjunctiva: Present: Normal Mouth: Present: Moist Mucous Membranes Neck: Present: Normal Range of Motion Respiratory/Chest: Present: Clear to Auscultation, Good Air Exchange. No: Respiratory Distress, Accessory Muscle Use Cardiovascular: Present: Regular Rate and Rhythm, Normal S1, S2. No: Murmurs Abdomen: No: Tenderness, Distention, Peritoneal Signs Back: Present: Normal Inspection Upper Extremity: Present: Tenderness (Left proximal shoulder and elbow tenderness). No: Cyanosis, Edema Lower Extremity: Present: Normal Inspection. No: Edema Neurological: Present: GCS=15, CN II-XII Intact, Speech Normal Skin: Present: Warm, Dry, Normal Color. No: Rashes Psychiatric: Present: Alert, Oriented x 3, Normal Insight, Normal Concentration Medical Decision Making ED Course and Treatment: 06/07/18 16:36 PT present to ED for left shoulder/elbow pain s/p trauma Head CT Left shoulder xray Left humerus elft elbow Case was DW Dr. Alvarez while he was in ED. He recommended arm sling and it was placed. He saw pt by the bedside and states he will see pt in his office in 10days. All result and plan was DW both pt and the daughter DC home with Tramadol for pain and referred to Dr. Sandoval - RAD Interpretation Radiology Orders: 06/07/18 14:18 HEAD W/O CONTRAST [CT] Stat 06/07/18 14:20 ELBOW LEFT 3 VIEWS ROUTINE [RAD] Stat SHOULDER LEFT [RAD] Stat 06/07/18 14:21 HUMERUS LEFT [RAD] Stat - Medication Orders Current Medication Orders: Discontinued Medications Acetaminophen (Tylenol 325mg Tab) 650 mg PO STAT STA Stop: 06/07/18 14:22 Last Admin: 06/07/18 14:27 Dose: 650 mg MAR Pain/Vitals Document 06/07/18 14:27 OCS (Rec: 06/07/18 14:28 OCS [id number]) Pain Reassessment Is This A Pain ReAssessment? No Sleep Is patient sleeping during reassessment? No Presence of Pain Presence of Pain Yes Pain Scale Used Protocol: PSCALES Pain Scale Used Numeric Location Left, Right or Bilateral Left Pain Location Body Site Shoulder Description Constant Intensity 10 Scale Used Numeric Pain Behavior Facial Grimacing Aggravating Factors ADL's Disposition/Present on Arrival - Present on Arrival Any Indicators Present on Arrival: No History of DVT/PE: No History of Uncontrolled Diabetes: No Urinary Catheter: No History of Decub. Ulcer: No History Surgical Site Infection Following: None - Disposition Have Diagnosis and Disposition been Completed?: Yes Diagnosis: Shoulder fracture Disposition: HOME/ ROUTINE Disposition Time: 16:20 Patient Plan: Discharge Patient Problems: Current Active Problems Problem Status Onset Shoulder fracture Acute Condition: STABLE Discharge Instructions (ExitCare): Shoulder Fracture (DC) Additional Instructions: Follow up with doctor Antonio in 10days Return to ED for any new or worsening symptoms Prescriptions: traMADol [Ultram] 50 mg PO Q6 #15 tab Referrals: Rivera Alvarez DO [Staff Provider] - Follow up with primary Forms: [email or web address] (Japanese)
--- NOTE | 2018-06-07 16:17 | RAD ---
Date of service: 06/07/2018 PROCEDURE: Radiographs of the left elbow. HISTORY: elbow pain s/p trauma COMPARISON: No prior. FINDINGS: BONES: Normal. No fracture. JOINTS: Normal. No osteoarthritis. SOFT TISSUES: Normal. JOINT EFFUSION: None. OTHER FINDINGS: None IMPRESSION: Unremarkable radiographs of the left elbow.
--- NOTE | 2018-06-07 16:18 | RAD ---
PROCEDURE: Radiographs of the left humerus. HISTORY: s/p trauma COMPARISON: None. FINDINGS: BONES: There is a fracture of the humeral neck. The remainder of the humerus is intact SOFT TISSUES: Normal. OTHER FINDINGS: None. IMPRESSION: There is a fracture of the humeral neck. The remainder of the humerus is intact
--- NOTE | 2018-06-07 16:19 | RAD ---
Date of service: 06/07/2018 PROCEDURE: Radiographs of the Left Shoulder HISTORY: shoulder pain s/p trauma COMPARISON: No prior. FINDINGS: BONES: There is a fracture of the humeral neck extending into the lateral aspect of the humeral head JOINTS: Normal. Glenohumeral and acromioclavicular joints preserved. No osteoarthritis. SOFT TISSUES: Normal. OTHER FINDINGS: None. IMPRESSION: There is a fracture of the humeral neck extending into the lateral aspect of the humeral head
[2018-06-07 16:38] VITALS: BP 135/75; PULSE 60; O2SAT 99
--- NOTE | 2018-06-07 20:03 | CON ---
DATE: 06/07/2018 ORTHOPEDIC CONSULTATION: HISTORY OF PRESENT ILLNESS: The patient was seen in the emergency room at [facility] at approximately 4 o'clock in the afternoon. Patient is a 77-year-old female who was at home with her who is also disabled because of a shoulder fracture. She slipped and fell at home and fractured her left shoulder. She is not going to be admitted to the hospital. She is going to be going home. Her doctor is Dr. Schulz. We will follow her as an outpatient because the fracture shows just mildly displaced greater tuberosity fracture of left proximal humerus, acceptable position as long it does not displace. If it displaces, her function would be suboptimal with decreased range of motion, increased pain. So, I told her to stay in a sling in the left shoulder and to sleep in a recliner, propped up at 35 to 40 degrees and to let that arm hang with the sling and not to put weight on it and not to do active range of motion or passive range of motion. I will follow her in the office in 10 days or 2 weeks to see how the fracture is doing and get an x-ray every 2 to 3 weeks because if it does go out of place she would need surgery. Otherwise, we will just treat her conservatively with a sling and give her mild medications for pain. FINAL DIAGNOSIS: Minimally displaced fracture of greater tuberosity of the left proximal humerus. PLAN: To treat her conservatively and follow her with a sling and periodic x-ray. I will see her in the office in 10 days or 2 weeks. Rivera Alvarez DO
== END 2018-06-07 16:38 | disposition home or self-care (01) ==
LOC: ED 13:07
DX: S42.252A Displaced fracture of greater tuberosity of left humerus, initial encounter for closed fracture (principal); W01.0XXA Fall on same level from slipping, tripping and stumbling without subsequent striking against object, initial encounter; I10 Essential (primary) hypertension; E11.9 Type 2 diabetes mellitus without complications; F03.90 Unspecified dementia, unspecified severity, without behavioral disturbance, psychotic disturbance, mood disturbance, and anxiety